=== PATIENT | male | born 1970 | race Caucasian/White ===

== ENCOUNTER → 2019-07-14 07:09 | Outpatient (CLI) | payer OTHER, SELFPAY ==
[2019-07-14 07:55] LABS: Hemoglobin A1C% w Est Avg Glu 5.4 % (4.0-6.0)
[2019-07-14 07:59] LABS: Alanine Aminotransferase 79 IU/L (<50); Albumin 4.7 g/dL (3.5-5.0); Albumin Globulin Ratio 1.6 (1.0-2.8); Alkaline Phosphatase 67 U/L (38-126); Aspartate Aminotransferase 39 IU/L (17-59); Bilirubin Total 0.6 mg/dL (0.2-1.3); Blood Urea Nitrogen 12 mg/dL (9-20); Calcium 9.6 mg/dL (8.4-10.2); Carbon Dioxide 23 mmol/L (22-32); Chloride 102 mmol/L (98-107); Cholesterol 224 mg/dL (140-199); Estimated Glomerular Filt Rate > 60.0 mL/min (>60); Globulin 2.9 g/dL (1.7-4.1); Glucose 95 mg/dL (70-100); HDL Cholesterol 31 mg/dL (40-60); HEMOLYSIS < 15 (0-50); LDL Cholesterol Calculated 163 mg/dL (<100); Potassium 4.2 mmol/L (3.4-5.1); Sodium 137 mmol/L (137-145); Total Protein 7.6 g/dL (6.3-8.2); Triglycerides 152 mg/dL (35-150)
[2019-07-14 09:09] LABS: HIV 1 & 2 Ab/Ag 4th Gen Combo NEGATIVE (NEGATIVE)
[2019-07-14 11:03] LABS: Urine N gonorrhoeae NOT DETECTED
[2019-07-14 11:14] LABS: Urine Chlamydia NOT DETECTED
[2019-07-17 08:34] LABS: Hepatitis A Antibody IgM NONREACTIVE; Hepatitis Acute Panel Interp 0.19; Hepatitis B Core Antibody IgM NONREACTIVE; Hepatitis B Surface Antigen NONREACTIVE; Hepatitis C Antibody NONREACTIVE
[2019-07-18 08:41] LABS: Syphilis AB Cascading Reflex NEGATIVE (Negative)
[2019-07-18 13:11] LABS: HSV 1 IgM Screen Negative (Negative); HSV 2 IgM Screen Negative (Negative)
== END ==
PROVIDERS: PCP Family Medicine; Visit Provider Family Medicine
DX: Z76.89 Persons encountering health services in other specified circumstances (principal); Z20.2 Contact with and (suspected) exposure to infections with a predominantly sexual mode of transmission
CPT/HCPCS: 36415; 80053; 80061; 80074; 83036; 86695; 86696; 86780; 87389; 87491; 87591

== ENCOUNTER → 2019-11-17 14:24 | Outpatient (CLI) | payer OTHER, SELFPAY ==
--- NOTE | 2019-11-17 14:26 | DI.RAD.S_ITS ---
PROCEDURE: XR FOOT RT MIN 3V INDICATIONS: swelling x2 weeks right foot and ankle TECHNIQUE: 3 views of the foot were acquired. COMPARISON: None. FINDINGS: Bones: No fractures or dislocations. No suspicious bony lesions. Soft tissues: No tibiotalar joint effusion. Achilles tendon appears normal. IMPRESSION: No trauma found, source of swelling is not seen. Dictated by: Arthur Summers M.D. on 11/17/2019 at 14:59 Approved by: Arthur Summers M.D. on 11/17/2019 at 15:00
--- NOTE | 2019-11-17 14:26 | DI.RAD.S_ITS ---
PROCEDURE: XR ANKLE RT MIN 3V INDICATIONS: swelling x2 weeks right foot and ankle TECHNIQUE: 3 views of the ankle were acquired. COMPARISON: None. FINDINGS: Bones: No fractures or dislocations. Ankle mortise is normally aligned. No suspicious bony lesions. Soft tissues: No tibiotalar joint effusion. Achilles tendon appears normal. IMPRESSION: No source of the reported swelling for 2 weeks, no trauma found. Mild swelling does appear localized over the lateral malleolus, which is normally aligned at the ankle mortise joint. This might represent a manifestation of ligament injury. Dictated by: Arthur Summers M.D. on 11/17/2019 at 14:58 Approved by: Arthur Summers M.D. on 11/17/2019 at 14:59
== END ==
PROVIDERS: PCP Family Medicine; Referring Provider Nurse Practitioner; Visit Provider Nurse Practitioner
DX: M25.471 Effusion, right ankle (principal)
CPT/HCPCS: 73610; 73630

== ENCOUNTER → 2020-01-03 17:42 | Outpatient (CLI) | payer OTHER, SELFPAY ==
--- NOTE | 2020-01-03 17:44 | DI.MRI.S_ITS ---
PROCEDURE: MR ANKLE RT WO CON INDICATIONS: Persistent right lateral ankle pain TECHNIQUE: Noncontrast sagittal T1 spin echo and T2 fast spin echo with fat saturation, axial proton density fast spin echo and T2 fast spin echo with fat saturation, coronal T1 spin echo and T2 fast spin echo with fat saturation through the ankle/hindfoot. COMPARISON: [facility], CR, XR ANKLE RT MIN 3V, 11/17/2019, 14:17. FINDINGS: Image quality: Excellent. Bones and joints: No bone marrow contusions or fractures. No hindfoot coalitions. No osteochondral injuries of the talar dome. Tibiotalar joint effusion is noted. Mild subcutaneous edema overlying the lateral and medial malleoli Medial structures: Posterior tibialis intact. Mild posterior tibialis tenosynovitis. Flexor digitorum longus intact. Flexor hallucis longus tendon intact. The posterior tibial neurovascular bundle appears normal within the tarsal tunnel, without extrinsic mass effect. Deltoid ligament complex appears intact. The spring ligament appears intact. Lateral structures: Anterior talofibular ligament not well seen and likely ruptured although age indeterminate.. Calcaneofibular ligament not well seen and may be result of low-grade sprain. Minimal sprain of the posterior talofibular ligament. Anterior and posterior tibiofibular ligaments appear intact, as is the intermalleolar ligament. Tibiofibular syndesmosis is normal in width at 2 mm or less. Peroneus longus and brevis tendons demonstrate normal location and morphology. Bony peroneal tubercle and retrotrochlear prominence are normal in size. Sinus tarsi demonstrates normal fatty signal, without edema, fibrosis, or cyst formation. Anterior structures: Tibialis anterior intact. Extensor hallucis longus intact. Extensor digitorum longus tendon intact. Dorsal talonavicular ligament appears intact. Posterior and plantar structures: Achilles tendon is intact. Mild medial band plantar fasciitis. This finding technically age indeterminate and could be chronic. No abductor digiti quinti muscle atrophy to suggest Sparks neuropathy. IMPRESSION: Sprain of the anterior talofibular and calcaneofibular (and to a much lesser extent posterior talofibular) ligaments. These findings technically age indeterminate and recommend correlation to clinical exam findings and history. Mild subcutaneous edema overlying the lateral medial malleoli. Mild posterior tibialis tenosynovitis Age-indeterminate mild medial band plantar fasciitis Tibiotalar joint effusion Dictated by: Harshad Bernard M.D. on 01/04/2020 at 8:40 Approved by: Harshad Bernard M.D. on 01/04/2020 at 8:50
== END ==
PROVIDERS: PCP Family Medicine; Referring Provider Family Medicine; Visit Provider Family Medicine
DX: M25.571 Pain in right ankle and joints of right foot (principal); S93.491A Sprain of other ligament of right ankle, initial encounter; S93.411A Sprain of calcaneofibular ligament of right ankle, initial encounter; R60.0 Localized edema; M65.871 Other synovitis and tenosynovitis, right ankle and foot; M72.2 Plantar fascial fibromatosis; M25.471 Effusion, right ankle
CPT/HCPCS: 73721

== ENCOUNTER → 2020-06-28 13:42 | Outpatient (CLI) | payer BC, SELFPAY ==
[2020-06-28 16:24] LABS: Add Manual Diff / Slide Review NO; Basophils Absolute Auto 100 /uL (0-100); Eosinophils Absolute Auto 400 /uL (0-450); Eosinophils Percent Auto 6.6 % (2-4); Hematocrit 45.7 % (41-53); Hemoglobin 15.2 g/dL (13.5-17.5); Lymphocytes Absolute Auto 1800 /uL (1100-4500); Lymphocytes Percent Auto 29.1 % (25-40); Mean Corpuscular HGB Conc 33.1 % (30-36); Mean Corpuscular Hemoglobin 26.9 PG (26-34); Mean Corpuscular Volume 81.2 fL (80-100); Monocytes Absolute Auto 500 /uL (0-900); Monocytes Percent Auto 7.7 % (3-14); Neutrophils Absolute Auto 3500 /uL (1500-7000); Neutrophils Percent Auto 55.6 % (50-75); Platelet Count 351 X10^3/uL (150-400); Red Blood Cell Count 5.63 X10^6/uL (4.5-5.9); White Blood Cell Count 6.3 X10^3/uL (4.5-11.0)
[2020-06-28 16:38] LABS: Alanine Aminotransferase 50 IU/L (<50); Albumin 4.5 g/dL (3.5-5.0); Albumin Globulin Ratio 1.7 (1.0-2.8); Alkaline Phosphatase 68 U/L (38-126); Aspartate Aminotransferase 29 IU/L (17-59); BUN Creatinine Ratio 11.4 (6-22); Bilirubin Total 0.3 mg/dL (0.2-1.3); Blood Urea Nitrogen 8 mg/dL (9-20); Calcium 9.2 mg/dL (8.4-10.2); Carbon Dioxide 26 mmol/L (22-32); Chloride 105 mmol/L (98-107); Cholesterol 202 mg/dL (140-199); Estimated Glomerular Filt Rate > 60.0 mL/min (>60); Globulin 2.6 g/dL (1.7-4.1); Glucose 83 mg/dL (70-100); HDL Cholesterol 39 mg/dL (40-60); HEMOLYSIS 17 (0-50); LDL Cholesterol Calculated 130 mg/dL (<100); Potassium 3.8 mmol/L (3.4-5.1); Sodium 137 mmol/L (137-145); Total Protein 7.1 g/dL (6.3-8.2); Triglycerides 165 mg/dL (35-150)
== END ==
PROVIDERS: PCP Family Medicine; Referring Provider Family Medicine; Visit Provider Family Medicine
DX: E78.00 Pure hypercholesterolemia, unspecified (principal); I10 Essential (primary) hypertension
CPT/HCPCS: 36415; 80053; 80061; 85025

== ENCOUNTER → 2020-07-05 14:42 | Outpatient (CLI) | payer BC, SELFPAY ==
--- NOTE | 2020-07-05 14:44 | DI.CT.S_ITS ---
PROCEDURE: CT HEAD/BRAIN WO/W CON INDICATIONS: Progressive atypical headache TECHNIQUE: 4.5 mm thick angled axial sections acquired from the foramen magnum to the vertex before and after the administration of intravenous contrast, with coronal and sagittal reformats. For radiation dose reduction, the following was used: automated exposure control, adjustment of mA and/or kV according to patient size. COMPARISON: None. FINDINGS: Image quality: Excellent. CSF Spaces: Basal cisterns are patent. No extra-axial fluid collections. Ventricles are normal in size and shape. Brain: No midline shift. No intracranial bleeds or masses. No abnormal intracranial enhancement. Best-white interface appears normal. Skull and face: Calvarium and visualized facial bones appear intact, without suspicious lesions. Sinuses: Visualized sinuses and mastoids are clear. IMPRESSION: Normal for age, source of current symptoms is not seen. No mass or aneurysm, or vascular malformation is found. Dictated by: Arthur Summers M.D. on 07/05/2020 at 16:03 Approved by: Arthur Summers M.D. on 07/05/2020 at 16:04
== END ==
PROVIDERS: PCP Family Medicine; Referring Provider Family Medicine; Visit Provider Family Medicine
DX: G43.109 Migraine with aura, not intractable, without status migrainosus (principal)
CPT/HCPCS: 70470

== ENCOUNTER → 2020-09-13 09:05 | Outpatient (CLI) | payer BC, SELFPAY ==
[2020-09-13 10:03] LABS: COVID19 -Nasal RAPID Negative (Negative)
== END ==
PROVIDERS: PCP Family Medicine; Visit Provider Surgery
DX: Z20.822 Contact with and (suspected) exposure to COVID-19 (principal)
CPT/HCPCS: 87635; C9803

== ENCOUNTER 2020-09-16 07:18 | Day surgery (SDC) | payer BC, SELFPAY ==
[2020-09-16 07:44] VITALS: BP 128/94; PULSE 103; RESP 14; TEMP 36.7; O2SAT 90; BMI 44.3
[2020-09-16] MEDS: SODIUM CHLORIDE 0.9% 1,000 ML 200 ML IV (08:00)
--- NOTE | 2020-09-16 08:21 | P.HP_ITS ---
History of Present Illness History of Present Illness Date Patient Seen: 09/16/20 Time Patient Seen: 08:21 Chief complaint: SDC Narrative: This is a 50-year-old man with morbid obesity, BMI 44, who had a prior colonoscopy 9 years ago for abdominal pain, with no particular findings. He is here for a screening colonoscopy since he has just turned 50. He denies any symptoms of melena, hematochezia, unexplained abdominal pain, unexplained weight loss. He denies any family history of colon polyps or colon cancers. ROS Thirteen system review is otherwise negative other than as mentioned below and in HPI. PE: GENERAL: Well groomed and cooperative. Morbidly obese. Appears stated age. Answers questions promptly and appropriately. Vital signs noted. HENT: Normocephalic, atraumatic. Hearing intact. EYES: Conjunctiva pink, sclera white, no periorbital swelling. CARDIOVASCULAR: Regular rate. No pedal edema. RESPIRATORY: Non-tachypneic, breathing comfortably on room air. GASTROINTESTINAL: Abdomen soft and non-distended GENITALURINARY: No flank tenderness. MUSCULOSKELETAL: Equal tone and mass bilaterally. SKIN: Warm, dry, soft, appropriate color for ethnicity. No other lesions, rashes, or wounds. NEURO: Alert and Oriented X 3. No gross sensory deficits, or cognitive issues. PSYCH: Appropriate affect and mood. Patient History Medical History Ankle pain (~2013) Asthma Chicken pox (~1976) Chronic back pain (~2007) Depression (~1981) Diverticular disease (~2011) Foot pain (~2013) GERD (gastroesophageal reflux disease) Headache (~2015) Hearing loss Hypertension Migraines (~2014) Skin tag (~2015) Substance abuse (~2006) Thoracic myofascial strain Wears glasses Well adult exam Surgical History Anesthesia History of oral surgery (~2003) Family & Social History Family History Father Hypertension Social History: household members other Tobacco & Substance use: Smoking Status Former smoker alcohol intake former Substance Use Type does not use Meds Home Medications and Allergies Home Medications Medication Instructions Recorded Confirmed Type ibuprofen 800 mg tablet 800 mg PO Q8H #90 tab 01/24/20 09/16/20 Rx albuterol sulfate 90 mcg/actuation 2 puff INHALATION QID PRN #6.7 gram 02/12/20 09/16/20 Rx aerosol inhaler docusate sodium 1 each PO .QD 02/12/20 09/16/20 History psyllium 1 each PO .HS 02/12/20 09/16/20 History amlodipine 5 mg tablet 5 mg PO DAILY #90 tab 06/28/20 09/16/20 Rx buzznvdkvk-foibgsmprqkif-wwndzvtl 1 cap PO Q4-6H PRN #10 cap 06/28/20 09/16/20 Rx 50 mg-300 mg-40 mg capsule trazodone 50 mg tablet 50 mg PO BEDTIME #90 tab 06/28/20 09/16/20 Rx diclofenac sodium 75 mg 75 mg PO BID PRN #180 tab 07/10/20 09/16/20 Rx tablet,delayed release sumatriptan succinate 100 mg tablet See Rx Instructions PO .COMPLEX 07/10/20 0 09/16/20 Rx #10 tab topiramate 50 mg tablet 50 mg PO BID #60 tab 07/10/20 09/16/20 Rx Allergies Allergy/AdvReac Type Severity Reaction Status Date / Time Sulfa (Sulfonamide Allergy Severe Rash Verified 09/16/20 07:40 Antibiotics) lisinopril AdvReac Mild Cough Verified 09/16/20 07:40 Exam Vital Signs (past 8 hours): - 09/16/20 07:44 Temperature 98.1 F Pulse Rate 103 H Respiratory Rate 14 Blood Pressure 128/94 H Pulse Oximetry 90 L Oxygen Delivery Method Room Air Assessment & Plan Assessment and plan (1) Morbid obesity with BMI of 40.0-44.9, adult: Status: Acute (2) At average risk for colon cancer: Status: Acute Assessment & Plan narrative: Risks and benefits of screening colonoscopy and possible polypectomy were discussed with the patient including risk of bleeding, perforation, need for additional procedures, risks of anesthesia. The patient desires to proceed with the colonoscopy procedure. COVID-19 COVID-19 status: Negative Result date/Date tested (Pos, Neg/Pending): 09/13/20 Time Spent With Patient Time with patient: 15-24 minutes Quality VTE Deep Vein Thrombosis/Pulmonary Embolism Present on Admission: No
--- NOTE | 2020-09-16 08:24 | P.OP.ENDO_ITS ---
Operative Date/Time/Diagnoses Date of procedure: 09/16/20 Time of procedure: 08:24 Pre-op diagnosis: Average risk for colon cancer, due for screening colonoscopy Post-op diagnosis: other (Diverticulosis throughout the colon, otherwise normal) Procedure & Clinicians Study performed: Colonoscopy Procedural sedation performed by the endoscopist Same procedure as scheduled: Yes Indications: Average risk for colon cancer, due for screening colonoscopy Surgeon: Pamella Gary Procedure Notes SCOAP/Timeout: Performed Procedure in detail: The patient was brought to the room and placed in left lateral decubitus position with all bony prominences padded. A time-out was performed and then the patient was given procedural sedation starting with 4 mg of Versed and 100 mcg of fentanyl. Vitals were monitored throughout the pro cedure and remained stable. Once adequately sedated, the procedure was begun. A rectal exam was performed revealing no abnormalities. The colonoscope was then introduced to the rectum and advanced to the cecum in the usual fashion. The cecum was identified by the appendiceal orifice, the mucosal tri-fold, and the ileocecal valve. The scope was then retracted while rotating side to side and examining each mucosal fold. Diverticula were found throughout the colon, but no sign of active diverticulitis, polyps, or other abnormalities were seen. At the conclusion of the procedure retroflexion was performed and small grade 1- 2 internal hemorrhoids without stigmata of bleeding were seen. The scope was then withdrawn from the rectum the procedure was concluded. The patient tolerated the procedure well and was transferred to the PACU in stable condition. Scope withdrawal time: 8 Sedation minutes: 13 Findings: diverticulosis Specimen(s): none sent Complications: none Impression: Diverticulosis throughout the colon, otherwise normal Post-procedure Recommendations: Colonscopy in 10 years and Other recommendation (High-fiber diet, fiber supplement such as Metamucil) Follow up: as needed Disposition: PACU
[2020-09-16] MEDS: fentaNYL 250 MCG/5 ML INJ IV (08:30)
[2020-09-16] MEDS: MIDAZOLAM 5 MG/5 ML VIAL IV (08:30)
[2020-09-16 08:52] VITALS: BP 142/98; PULSE 93; RESP 13; TEMP 36.4; O2SAT 92
[2020-09-16 08:58] VITALS: BP 139/93; PULSE 102; RESP 12; O2SAT 94
[2020-09-16 09:02] VITALS: BP 130/89; PULSE 93; RESP 13; TEMP 36.2; O2SAT 94
== END 2020-09-16 09:17 | disposition home or self-care (01) ==
PROVIDERS: PCP Family Medicine; Referring Provider Surgery; Visit Provider Surgery
PROC: 0DJD8ZZ Inspection of Lower Intestinal Tract, Via Natural or Artificial Opening Endoscopic (ICD-10-PCS; CPT 45378; principal; 2020-09-16 08:30)
DX: Z12.11 Encounter for screening for malignant neoplasm of colon (principal); E66.01 Morbid (severe) obesity due to excess calories; Z68.41 Body mass index [BMI] 40.0-44.9, adult; K64.0 First degree hemorrhoids; K57.30 Diverticulosis of large intestine without perforation or abscess without bleeding
CPT/HCPCS: 45378; 99152; J2250; J3010

== ENCOUNTER → 2021-04-01 09:29 | Outpatient (CLI) | payer BC, SELFPAY ==
[2021-04-01 10:19] LABS: Add Manual Diff / Slide Review NO; Basophils Absolute Auto 0 /uL (0-100); Basophils Percent Auto 0.2 % (0-2); Eosinophils Absolute Auto 400 /uL (0-450); Eosinophils Percent Auto 6.7 % (2-4); Hematocrit 44.6 % (41-53); Lymphocytes Absolute Auto 1600 /uL (1100-4500); Lymphocytes Percent Auto 29.2 % (25-40); Mean Corpuscular HGB Conc 33.6 % (30-36); Mean Corpuscular Hemoglobin 27.6 PG (26-34); Mean Corpuscular Volume 82.1 fL (80-100); Monocytes Absolute Auto 400 /uL (0-900); Monocytes Percent Auto 7.9 % (3-14); Neutrophils Absolute Auto 3100 /uL (1500-7000); Platelet Count 328 X10^3/uL (150-400); Red Blood Cell Count 5.43 X10^6/uL (4.5-5.9); Red Cell Distribution Width 13.4 % (11.6-14.8); White Blood Cell Count 5.5 X10^3/uL (4.5-11.0)
[2021-04-01 10:39] LABS: Alanine Aminotransferase 67 IU/L (<50); Albumin 4.4 g/dL (3.5-5.0); Albumin Globulin Ratio 1.8 (1.0-2.8); Alkaline Phosphatase 61 U/L (38-126); Aspartate Aminotransferase 33 IU/L (17-59); Bilirubin Total 0.4 mg/dL (0.2-1.3); Blood Urea Nitrogen 12 mg/dL (9-20); Calcium 9.5 mg/dL (8.4-10.2); Carbon Dioxide 23 mmol/L (22-32); Chloride 108 mmol/L (98-107); Cholesterol 223 mg/dL (140-199); Estimated Glomerular Filt Rate > 60.0 mL/min (>60); Globulin 2.5 g/dL (1.7-4.1); Glucose 109 mg/dL (70-100); HDL Cholesterol 42 mg/dL (40-60); HEMOLYSIS < 15 (0-50); LDL Cholesterol Calculated 147 mg/dL (<100); Potassium 4.4 mmol/L (3.4-5.1); Sodium 140 mmol/L (137-145); Total Protein 6.9 g/dL (6.3-8.2); Triglycerides 172 mg/dL (35-150)
[2021-04-01 11:09] LABS: TSH w/ Reflex to FT4 1.17 uIU/mL (0.47-4.68)
== END ==
PROVIDERS: PCP Family Medicine; Referring Provider Family Medicine; Visit Provider Family Medicine
DX: I10 Essential (primary) hypertension (principal); G43.909 Migraine, unspecified, not intractable, without status migrainosus; E66.01 Morbid (severe) obesity due to excess calories; K21.9 Gastro-esophageal reflux disease without esophagitis; Z68.41 Body mass index [BMI] 40.0-44.9, adult
CPT/HCPCS: 36415; 80053; 80061; 84443; 85025

== ENCOUNTER → 2021-08-11 17:12 | Outpatient (CLI) | payer BC, SELFPAY ==
--- NOTE | 2021-08-11 17:14 | DI.RAD.S_ITS ---
PROCEDURE: XR CHEST 2V INDICATIONS: cough in an ex smoker TECHNIQUE: 2 views of the chest were acquired. COMPARISON: None. FINDINGS: Surgical changes and devices: None. Lungs and pleura: Lungs are clear. No pleural effusions or pneumothorax. Mediastinum: Mediastinal contours are normal. Heart size is normal. Bones and chest wall: No suspicious bony abnormalities. Soft tissues appear unremarkable. IMPRESSION: No acute cardiopulmonary pathology. Dictated by: Flavio Leon M.D. on 08/12/2021 at 10:33 Approved by: Flavio Leon M.D. on 08/12/2021 at 10:33
[2021-08-11 18:23] LABS: Alanine Aminotransferase 71 IU/L (<50); Albumin Globulin Ratio 1.7 (1.0-2.8); Alkaline Phosphatase 68 U/L (38-126); Aspartate Aminotransferase 45 IU/L (17-59); BUN Creatinine Ratio 7.3 (6-22); Bilirubin Total 0.4 mg/dL (0.2-1.3); Blood Urea Nitrogen 7 mg/dL (9-20); Calcium 9.5 mg/dL (8.4-10.2); Carbon Dioxide 22 mmol/L (22-32); Chloride 109 mmol/L (98-107); Cholesterol 183 mg/dL (140-199); Estimated Glomerular Filt Rate > 60.0 mL/min (>60); Glucose 88 mg/dL (70-100); HDL Cholesterol 44 mg/dL (40-60); HEMOLYSIS < 15 (0-50); LDL Cholesterol Calculated 102 mg/dL (<100); Potassium 3.7 mmol/L (3.4-5.1); Sodium 142 mmol/L (137-145); Triglycerides 186 mg/dL (35-150)
[2021-08-11 18:55] LABS: Prostate Specific Antigen 2.23 ng/mL (0.10-4.00)
[2021-08-11 19:09] LABS: Hemoglobin A1C% w Est Avg Glu 5.9 % (4.0-6.0)
== END ==
PROVIDERS: PCP Family Medicine; Referring Provider Family Medicine; Visit Provider Family Medicine
DX: R05.9 Cough, unspecified (principal); R73.9 Hyperglycemia, unspecified; Z00.00 Encounter for general adult medical examination without abnormal findings; E78.5 Hyperlipidemia, unspecified
CPT/HCPCS: 36415; 71046; 80053; 80061; 83036; 84153

== ENCOUNTER → 2022-02-13 07:15 | Outpatient (CLI) | payer BC, SELFPAY ==
[2022-02-13 09:45] LABS: Alanine Aminotransferase 52 IU/L (<50); Albumin 4.1 g/dL (3.5-5.0); Albumin Globulin Ratio 1.6 (1.0-2.8); Alkaline Phosphatase 69 U/L (38-126); Aspartate Aminotransferase 33 IU/L (17-59); BUN Creatinine Ratio 11.9 (6-22); Bilirubin Total 0.6 mg/dL (0.2-1.3); Blood Urea Nitrogen 10 mg/dL (9-20); Calcium 9.2 mg/dL (8.4-10.2); Carbon Dioxide 26 mmol/L (22-32); Chloride 107 mmol/L (98-107); Estimated Glomerular Filt Rate > 60 mL/min (>60); Globulin 2.5 g/dL (1.7-4.1); Glucose 103 mg/dL (70-100); HEMOLYSIS < 15 (0-50); Sodium 139 mmol/L (137-145); Total Protein 6.6 g/dL (6.3-8.2)
[2022-02-13 10:26] LABS: Urine N gonorrhoeae NOT DETECTED
[2022-02-13 10:27] LABS: Urine Chlamydia NOT DETECTED
[2022-02-13 16:21] LABS: HIV 1 & 2 Ab/Ag 4th Gen Combo NEGATIVE (NEGATIVE); Hep C Virus Ab w/Reflex Quant NEGATIVE s/c (NEGATIVE)
[2022-02-14 02:52] LABS: HSV 2 IGG AB < 0.91 index (0.00-0.90); HSV1IGG 6.36 index (0.00-0.90)
== END ==
PROVIDERS: PCP Family Medicine; Referring Provider Family Medicine; Visit Provider Family Medicine
DX: Z00.00 Encounter for general adult medical examination without abnormal findings (principal)
CPT/HCPCS: 36415; 80053; 86695; 86696; 86803; 87389; 87491; 87591

== ENCOUNTER → 2022-03-07 07:59 | Outpatient (CLI) | payer BC, SELFPAY ==
[2022-03-07 09:36] LABS: Add Manual Diff / Slide Review NO; Basophils Absolute Auto 0 /uL (0-100); Basophils Percent Auto 0.9 % (0-2); Eosinophils Absolute Auto 300 /uL (0-450); Eosinophils Percent Auto 5.1 % (2-4); Hematocrit 43.9 % (41-53); Hemoglobin 15.1 g/dL (13.5-17.5); Lymphocytes Absolute Auto 1600 /uL (1100-4500); Lymphocytes Percent Auto 30.3 % (25-40); Mean Corpuscular HGB Conc 34.4 % (30-36); Mean Corpuscular Hemoglobin 27.6 PG (26-34); Mean Corpuscular Volume 80.2 fL (80-100); Monocytes Absolute Auto 400 /uL (0-900); Monocytes Percent Auto 7.4 % (3-14); Neutrophils Absolute Auto 3000 /uL (1500-7000); Neutrophils Percent Auto 56.3 % (50-75); Platelet Count 310 X10^3/uL (150-400); Red Blood Cell Count 5.47 X10^6/uL (4.5-5.9); Red Cell Distribution Width 13.6 % (11.6-14.8); White Blood Cell Count 5.4 X10^3/uL (4.5-11.0)
[2022-03-07 09:43] LABS: Hemoglobin A1C% w Est Avg Glu 5.6 % (4.0-6.0)
[2022-03-07 09:55] LABS: Cholesterol 123 mg/dL (140-199); HDL Cholesterol 35 mg/dL (40-60); LDL Cholesterol Calculated 69 mg/dL (<100); Triglycerides 96 mg/dL (35-150)
== END ==
PROVIDERS: PCP Family Medicine; Referring Provider Family Medicine; Visit Provider Family Medicine
DX: E78.2 Mixed hyperlipidemia (principal); R73.9 Hyperglycemia, unspecified
CPT/HCPCS: 36415; 80061; 83036; 85025

== ENCOUNTER → 2022-08-26 11:02 | Outpatient (CLI) | payer OTHER, SELFPAY ==
[2022-08-26 11:35] LABS: Alanine Aminotransferase 38 IU/L (<50); Albumin 4.4 g/dL (3.5-5.0); Albumin Globulin Ratio 1.6 (1.0-2.8); Alkaline Phosphatase 78 U/L (38-126); Aspartate Aminotransferase 26 IU/L (17-59); BUN Creatinine Ratio 9.8 (6-22); Bilirubin Total 0.4 mg/dL (0.2-1.3); Blood Urea Nitrogen 8 mg/dL (9-20); Calcium 9.1 mg/dL (8.4-10.2); Carbon Dioxide 24 mmol/L (22-32); Chloride 107 mmol/L (98-107); Estimated Glomerular Filt Rate > 60 mL/min (>60); Globulin 2.8 g/dL (1.7-4.1); Glucose 109 mg/dL (70-100); Hemoglobin A1C% w Est Avg Glu 5.8 % (4.0-6.0); Potassium 3.8 mmol/L (3.4-5.1); Sodium 139 mmol/L (137-145); Total Protein 7.2 g/dL (6.3-8.2)
[2022-08-28 09:52] LABS: HEMOLYSIS 18 (0-50); Prostate Specific Antigen 1.45 ng/mL (0.10-4.00)
== END ==
PROVIDERS: PCP Family Medicine; Referring Provider Family Medicine; Visit Provider Family Medicine
DX: E78.5 Hyperlipidemia, unspecified (principal); I10 Essential (primary) hypertension; R73.9 Hyperglycemia, unspecified
CPT/HCPCS: 36415; 80053; 83036; 84153

== ENCOUNTER → 2023-03-05 13:49 | Outpatient (CLI) | payer OTHER, SELFPAY ==
[2023-03-05 15:29] LABS: Alanine Aminotransferase 31 IU/L (<50); Albumin 4.3 g/dL (3.5-5.0); Albumin Globulin Ratio 1.6 (1.0-2.8); Alkaline Phosphatase 65 U/L (38-126); Aspartate Aminotransferase 24 IU/L (17-59); BUN Creatinine Ratio 13.3 (6-22); Bilirubin Total 0.3 mg/dL (0.2-1.3); Blood Urea Nitrogen 11 mg/dL (9-20); Calcium 9.4 mg/dL (8.4-10.2); Carbon Dioxide 26 mmol/L (22-32); Chloride 106 mmol/L (98-107); Estimated Glomerular Filt Rate > 60 mL/min (>60); Globulin 2.7 g/dL (1.7-4.1); Glucose 101 mg/dL (70-100); HEMOLYSIS < 15 (0-50); Potassium 4.2 mmol/L (3.4-5.1); Sodium 138 mmol/L (137-145)
[2023-03-06 09:09] LABS: HIV 1 & 2 Ab/Ag 4th Gen Combo NEGATIVE (NEGATIVE); Hep C Virus Ab w/Reflex Quant NEGATIVE s/c (NEGATIVE)
== END ==
PROVIDERS: PCP Family Medicine; Referring Provider Family Medicine; Visit Provider Family Medicine
DX: I10 Essential (primary) hypertension (principal); Z11.3 Encounter for screening for infections with a predominantly sexual mode of transmission
CPT/HCPCS: 36415; 80053; 86803; 87389

== ENCOUNTER 2023-06-03 06:10 | Emergency (ER) | payer OTHER, SELFPAY ==
[2023-06-03 06:14] VITALS: PULSE 75; O2SAT 98
[2023-06-03 06:16] VITALS: BP 150/93; PULSE 58; RESP 18; TEMP 36.4; O2SAT 97; BMI 39.9
--- NOTE | 2023-06-03 06:21 | DI.CT.S_ITS ---
PROCEDURE: CT ABDOMEN PELVIS W CON INDICATIONS: RLQ ABDOMINAL PAIN TECHNIQUE: After the administration of IV contrast, axial sections were acquired from the lung bases to the pubic symphysis. Coronal and sagittal reformats were performed. For radiation dose reduction, the following was used: automated exposure control, adjustment of mA and/or kV according to patient size. COMPARISON: None. FINDINGS: Image quality: Excellent. Lung bases: Unremarkable. Heart: No significant findings. ABDOMEN: Liver: Hepatic steatosis. Probable tiny cyst in the right lobe of the liver. Gallbladder: Not distended. No stones. Biliary ducts: No biliary dilation. Pancreas: No ductal dilation. Spleen: Size is within normal limits. Adrenal Glands: No adrenal nodules. Kidneys and Ureters: Obstructing calculus in the proximal right ureter measuring at 0.4 cm. There is moderate right hydronephrosis. Right perinephric stranding. Additional punctate nonobstructing right kidney stone. No solid renal mass. No left hydronephrosis. Stomach and Bowel: Normal colonic caliber, without significant wall thickening. Diverticulosis. Normal appendix. Peritoneum: No abnormal intraperitoneal fluid. No free air. Ventral Wall: No hernia. Abdominal Nodes: No retroperitoneal or mesenteric adenopathy by size criteria. Mesenteric lymph nodes are felt to be within normal limits. Vessels: Aorta and inferior vena cava are normal in size. PELVIS: Pelvic Organs: Unremarkable. Bladder: Unremarkable. Pelvic Nodes: No enlarged lymph nodes. Miscellaneous: No inguinal hernias are seen. Bones: No aggressive osseous abnormality. IMPRESSION: 1. Obstructing calculus in the proximal right ureter measuring 0.4 cm. Moderate hydronephrosis. 2. Additional small nonobstructing right kidney stone. 3. Diverticulosis. Normal appendix. Hepatic steatosis. No significant discrepancy with the overnight preliminary interpretation. Dictated by: Kaveh Bird M.D. on 06/03/2023 at 8:48 Approved by: Kaveh Bird M.D. on 06/03/2023 at 8:54
--- NOTE | 2023-06-03 06:22 | ED_ITS ---
HPI - Abdominal Pain General Chief Complaint: Abdominal Pain Stated Complaint: rt abd pain, n/v Time Seen by Provider: 06/03/23 06:11 Source: patient Mode of arrival: Ambulatory History of Present Illness HPI narrative: 52yoM with PMH HTN, HLD present by private vehicle from home for RLQ abdominal pain with nausea and vomiting that woke him up from sleep approximately 1 hour prior to arrival. Pain is constant, does not radiate, nothing seems to make it better or worse. No medications taken prior to arrival. Reports previous history of diverticulitis, but this feels different and on is on a different side of his abdomen. Related Data Home Medications Medication Instructions Recorded Confirmed docusate sodium 1 each PO .QD 02/12/20 12/31/22 psyllium [Metamucil (sugar)] 1 each PO .HS 02/12/20 12/31/22 cpap 08/11/21 12/31/22 Previous Rx's Medication Instructions Recorded sumatriptan succinate 100 mg tablet See Rx Instructions PO .COMPLEX 03/31/22 #10 tabs ibuprofen 800 mg tablet 800 mg PO Q8H #90 tabs 07/17/22 albuterol sulfate 90 mcg/actuation 1 - 2 puff inhalation QID PRN 09/29/22 aerosol inhaler (Ventolin HFA) shortness of breath or wheezing, or cough #6.7 grams amlodipine 5 mg tablet 5 mg PO DAILY #90 tabs 09/29/22 atorvastatin 20 mg tablet 20 mg PO BEDTIME #90 tabs 09/29/22 azelastine 0.05 % eye drops 1 drp EYE-BOTH BID viral 09/29/22 conjunctivitis #6 mL calcipotriene 0.005 % scalp 1 ml topical .BIW PRN atopic 09/29/22 solution dermatitis #60 mL clobetasol 0.05 % scalp solution 1 ml topical .BIW PRN atopic 09/29/22 dermatitis #50 mL fluticasone 250 mcg-salmeterol 50 1 inh inhalation BID #60 ea 09/29/22 mcg/dose blistr powdr for inhalation (Advair Diskus) metoprolol succinate 25 mg See Rx Instructions .Route 09/29/22 tablet,extended release 24 hr .COMPLEX #90 tabs mupirocin 2 % topical ointment 1 applic topical TID #15 grams 09/29/22 emtricitabine 200 mg-tenofovir 1 tab PO DAILY #90 tabs 03/01/23 disoproxil fumarate 300 mg tablet (Truvada) trazodone 50 mg tablet 50 mg PO BEDTIME #90 tabs 04/07/23 ubeobpnkxt-mnuoypwqwvgwj-qzvlcsps 1 cap PO Q4-6H PRN pain #10 caps 06/03/23 50 mg-300 mg-40 mg capsule (Fioricet) terbinafine HCl 250 mg tablet 250 mg PO DAILY #90 tabs 06/03/23 Allergies Allergy/AdvReac Type Severity Reaction Status Date / Time Sulfa (Sulfonamide Allergy Severe Rash Verified 12/31/22 15:34 Antibiotics) lisinopril AdvReac Mild Cough Verified 12/31/22 15:34 Review of Systems Review of Systems Narrative: Negative except as noted above Patient History Medical History Concern about STD in male without diagnosis Onychomycosis Cough Well adult exam Hyperglycemia Hyperlipidemia Sleep apnea Fatigue Insomnia GERD (gastroesophageal reflux disease) Thoracic myofascial strain Asthma GERD (gastroesophageal reflux disease) Well adult exam Wears glasses Hearing loss Skin tag (~2015) Substance abuse (~2006) Depression (~1981) Migraines (~2014) Headache (~2015) Foot pain (~2013) Chronic back pain (~2007) Ankle pain (~2013) Chicken pox (~1976) Diverticular disease (~2011) Hypertension Surgical History Anesthesia History of oral surgery (~2003) Family History Father Hypertension Hyperlipidemia Mother Hypertension Active asthma Social History household members: other Smoking Status: Current some day smoker Tobacco: How many years used: 28 quit status: has quit before second hand exposure: Yes alcohol intake: former substance use type: former substance user, marijuana, crack/cocaine and methamphetamine Smoking Status: Current some day smoker tobacco type: cigars Substance Use Type: does not use Exam Initial Vital Signs Initial Vital Signs: Vital Signs Pulse Rate 75 06/03/23 06:14 Pulse Oximetry 98 06/03/23 06:14 Oxygen Delivery Method Room Air 06/03/23 06:14 Const: Awake, alert, uncomfortable, in pain Cardiac: regular rate, regular rhythm RESP: unlabored, clear bilaterally, no wheezing GI: Soft, right lower quadrant tenderness to deep palpation without rebound or guarding Skin: Warm, Dry, intact, no rashes Neuro: AO x3, CN II-XII grossly intact, moves all extremities Course Orders Ordered: ED Orders 06/03/23 06:21 CT abdomen pelvis w con Stat CBC Auto Diff [Complete Blood Count AUTO DIFF] Stat CMP [Comprehensive Metabolic Panel] Stat Lipase Stat 06/03/23 06:22 UA Complete [Urinalysis and Microscopic] Stat Sodium Chloride (Normal Saline 0.9%) 1,000 mls @ 1,000 mls/hr IV BOLUS ONE Stop: 06/03/23 07:20 Last Admin: 06/03/23 06:30 Dose: 1,000 mls/hr Ketorolac Tromethamine (Ketorolac 30 Mg/Ml Vial) 15 mg IV NOW ONE Stop: 06/03/23 07:02 Discontinued Medications Morphine Sulfate (Morphine 4 Mg/Ml Inj) 4 mg IV NOW ONE Stop: 06/03/23 06:22 Last Admin: 06/03/23 06:30 Dose: 4 mg Ondansetron HCl (Ondansetron 4 Mg/2 Ml Inj) 4 mg IV NOW ONE Stop: 06/03/23 06:22 Last Admin: 06/03/23 06:30 Dose: 4 mg Vital Signs Vital signs: Vital Signs - 8 hr 06/03/23 06:14 06/03/23 06:16 06/03/23 06:30 Temperature 97.6 F Pulse Rate 75 58 L Respiratory Rate 18 Blood Pressure 150/93 H 149/90 H Pulse Oximetry 98 97 Oxygen Delivery Method Room Air Room Air 06/03/23 06:30 Temperature Pulse Rate 64 Respiratory Rate Blood Pressure Pulse Oximetry 96 Oxygen Delivery Method Room Air MDM - Abdominal Pain Differential Diagnosis Differential diagnosis: Likely abdominal pain, acute appendicitis and calculus of kidney Lab Data 06/03/23 06:24 06/03/23 06:24 Labs: Lab Results 06/03/23 Range/Units 06:24 WBC 7.6 (4.5-11.0) X10^3/uL RBC 5.59 (4.5-5.9) X10^6/uL Hgb 16.3 (13.5-17.5) g/dL Hct 46.8 (41-53) % MCV 83.8 (80-100) fL MCH 29.1 (26-34) PG MCHC 34.7 (30-36) % RDW 13.5 (11.6-14.8) % Plt Count 309 (150-400) X10^3/uL Neut % (Auto) 67.4 (50-75) % Lymph % (Auto) 20.9 L (25-40) % Rosebud % (Auto) 6.9 (3-14) % Eos % (Auto) 3.7 (2-4) % Baso % (Auto) 1.1 (0-2) % Neut # (Auto) 5100 (3725-0588) /uL Lymph # (Auto) 1600 (3024-4355) /uL [place] # (Auto) 500 (0-900) /uL Eos # (Auto) 300 (0-450) /uL Baso # (Auto) 100 (0-100) /uL Sodium 138 (137-145) mmol/L Potassium 4.1 (3.4-5.1) mmol/L Chloride 109 H (98-107) mmol/L Carbon Dioxide 19 L (22-32) mmol/L BUN 12 (9-20) mg/dL Creatinine 0.90 (0.66-1.25) mg/dL Estimated GFR > 60 (>60) mL/min BUN/Creatinine Ratio 13.3 (6-22) Glucose 132 H (70-100) mg/dL Calcium 9.5 (8.4-10.2) mg/dL Total Bilirubin 0.6 (0.2-1.3) mg/dL AST 28 (17-59) IU/L ALT 33 (<50) IU/L Alkaline Phosphatase 63 (38-126) U/L Total Protein 7.2 (6.3-8.2) g/dL Albumin 4.4 (3.5-5.0) g/dL Globulin 2.8 (1.7-4.1) g/dL Albumin/Globulin Ratio 1.6 (1.0-2.8) Lipase 114 (23-300) U/L [facility] Narrative Medical decision making narrative: Nontoxic appearing patient with sudden onset right lower quadrant pain causing him to wake up from sleep. Abdomen is soft but he does have tenderness to deep palpation in the right lower quadrant. Vital signs reviewed. NS, morphine, zofran ordered for symptoms. Labs/CT scan pending. Laboratory work reviewed, no leukocytosis, kidney function normal. Pending urinalysis and CT imaging. Care of patient is signed out to Dr. Garcia at 0700 Discharge Plan Departure Prescriptions: No Action sumatriptan succinate 100 mg tablet See Rx Instructions PO .COMPLEX Qty: 10 2RF Rx Instructions: take 1 tab at onset of headache; if no relief, may repeat 1 tab after at least 2 hrs; max = 2 tabs/24 hrs PO albuterol sulfate [Ventolin HFA] 90 mcg/actuation HFA aerosol inhaler 1 - 2 puff INHALATION QID PRN (Reason: shortness of breath or wheezing, or cough) Qty: 6.7 2RF Rx Instructions: 1-2 puffs inh as needed shortness of breath,wheezing,cough amlodipine 5 mg tablet 5 mg PO DAILY Qty: 90 1RF atorvastatin 20 mg tablet 20 mg PO BEDTIME Qty: 90 3RF azelastine 0.05 % drops 1 drp EYE-BOTH BID Qty: 6 0RF calcipotriene 0.005 % solution 1 ml topical .BIW PRN (Reason: atopic dermatitis) Qty: 60 0RF Rx Instructions: rub in gently and completely. apply sparingly to affected area at bedtime. shower the next morning. use with clobetasol 0.05% topical solution. clobetasol 0.05 % solution 1 ml topical .BIW PRN (Reason: atopic dermatitis) Qty: 50 0RF Rx Instructions: apply sparingly to affected area at bedtime. shower the next morning. use with calcipotriene 0.005% topical solution. fluticasone propion-salmeterol [Advair Diskus] 250-50 mcg/dose blister with device 1 inh inhalation BID Qty: 60 5RF metoprolol succinate 25 mg tablet extended release 24 hr See Rx Instructions .ROUTE .COMPLEX Qty: 90 3RF Dose Instruction: TAKE ONE TABLET BY MOUTH NIGHTLY AT BEDTIME Rx Instructions: TAKE ONE TABLET BY MOUTH NIGHTLY AT BEDTIME mupirocin 2 % ointment 1 applic topical TID Qty: 15 0RF trazodone 50 mg tablet 50 mg PO BEDTIME Qty: 90 1RF mpzeouyesk-jycvjoklrmgav-oyle [Fioricet] 50-300-40 mg capsule 1 cap PO Q4-6H PRN (Reason: pain) Qty: 10 1RF terbinafine HCl 250 mg tablet 250 mg PO DAILY Qty: 90 1RF docusate sodium 1 each PO .QD psyllium 1 each PO .HS (DME) cpap 0 .Route .MEDSUPPLY emtricitabine-tenofovir (TDF) [Truvada] 200-300 mg tablet 1 tab PO DAILY Qty: 90 1RF ibuprofen 800 mg tablet 800 mg PO Q8H Qty: 90 1RF Rx Instructions: Take 1 tab by mouth up to every 8 hours as needed for ankle pain Referrals: Devyn Beverly DO [Primary Care Provider] -
[2023-06-03 06:30] VITALS: BP 149/90; PULSE 64; O2SAT 96
[2023-06-03] MEDS: ONDANSETRON 4 MG/2 ML INJ IV (06:30)
[2023-06-03] MEDS: SODIUM CHLORIDE 0.9% 1,000 ML 1000 ML IV (06:30)
[2023-06-03] MEDS: MORPHINE 4 MG/ML INJ IV (06:30)
[2023-06-03 06:32] LABS: Add Manual Diff / Slide Review NO; Basophils Absolute Auto 100 /uL (0-100); Basophils Percent Auto 1.1 % (0-2); Eosinophils Absolute Auto 300 /uL (0-450); Eosinophils Percent Auto 3.7 % (2-4); Hematocrit 46.8 % (41-53); Hemoglobin 16.3 g/dL (13.5-17.5); Lymphocytes Absolute Auto 1600 /uL (1100-4500); Lymphocytes Percent Auto 20.9 % (25-40); Mean Corpuscular HGB Conc 34.7 % (30-36); Mean Corpuscular Hemoglobin 29.1 PG (26-34); Mean Corpuscular Volume 83.8 fL (80-100); Monocytes Absolute Auto 500 /uL (0-900); Monocytes Percent Auto 6.9 % (3-14); Neutrophils Absolute Auto 5100 /uL (1500-7000); Neutrophils Percent Auto 67.4 % (50-75); Platelet Count 309 X10^3/uL (150-400); Red Blood Cell Count 5.59 X10^6/uL (4.5-5.9); Red Cell Distribution Width 13.5 % (11.6-14.8); White Blood Cell Count 7.6 X10^3/uL (4.5-11.0)
[2023-06-03 06:42] LABS: Alanine Aminotransferase 33 IU/L (<50); Albumin 4.4 g/dL (3.5-5.0); Albumin Globulin Ratio 1.6 (1.0-2.8); Alkaline Phosphatase 63 U/L (38-126); Aspartate Aminotransferase 28 IU/L (17-59); BUN Creatinine Ratio 13.3 (6-22); Bilirubin Total 0.6 mg/dL (0.2-1.3); Blood Urea Nitrogen 12 mg/dL (9-20); Calcium 9.5 mg/dL (8.4-10.2); Carbon Dioxide 19 mmol/L (22-32); Chloride 109 mmol/L (98-107); Estimated Glomerular Filt Rate > 60 mL/min (>60); Globulin 2.8 g/dL (1.7-4.1); Glucose 132 mg/dL (70-100); HEMOLYSIS 17 (0-50); Lipase 114 U/L (23-300); Potassium 4.1 mmol/L (3.4-5.1); Sodium 138 mmol/L (137-145); Total Protein 7.2 g/dL (6.3-8.2)
[2023-06-03 07:35] VITALS: BP 129/80; PULSE 71; RESP 16; O2SAT 96
[2023-06-03] MEDS: KETOROLAC 30 MG/ML VIAL 15 MG IV (07:46)
[2023-06-03 08:00] VITALS: BP 116/69; PULSE 66; RESP 18; O2SAT 94
[2023-06-03 08:30] VITALS: BP 107/66; PULSE 64; RESP 18; O2SAT 93
[2023-06-03 08:32] LABS: Appearance Urine UA CLEAR; Bilirubin Urine UA NEGATIVE (NEGATIVE); Color Urine UA YELLOW; Glucose Urine UA NEGATIVE (Negative); Ketones Urine UA NEGATIVE (NEGATIVE); Leukocyte Esterase Urine UA NEGATIVE (NEGATIVE); Nitrite Urine UA NEGATIVE (Negative); Occult Blood Urine UA 3+ (Negative); Protein Urine UA NEGATIVE (Negative); Specific Gravity Urine UA <=1.005 (1.000-1.035); Urobilinogen Urine UA 0.2 E.U./dL (0.2)
[2023-06-03 08:57] LABS: Bacteria Urine Occasional (0-1); Culture Indicated Urine Cult Not Indicated; RBC Urine 10-30/HPF (0-5/HPF); Squamous Epithelial Cell Urine 0-1 /HPF (0-5/HPF); WBC Urine 1-5/HPF (0-5/HPF)
== END 2023-06-03 09:14 | disposition home or self-care (01) ==
PROVIDERS: Emergency Medicine; Emergency Provider Emergency Medicine; PCP Family Medicine
DX: N20.1 Calculus of ureter (principal); R11.2 Nausea with vomiting, unspecified
CPT/HCPCS: 36415; 74177; 80053; 81001; 83690; 85025; 96361; 96374; 96375; 99284; J1885; J2270; J2405; Q9967

== ENCOUNTER → 2023-08-02 19:41 | Outpatient (ROUT) | payer OTHER, SELFPAY ==
[2023-08-02 21:16] LABS: Urine N gonorrhoeae NOT DETECTED
[2023-08-02 21:22] LABS: Urine Chlamydia NOT DETECTED
== END ==
PROVIDERS: PCP Family Medicine; Visit Provider Nurse Practitioner
DX: N48.89 Other specified disorders of penis (principal)
CPT/HCPCS: 87491; 87591

== ENCOUNTER → 2023-08-13 15:06 | Outpatient (CLI) | payer OTHER, SELFPAY ==
--- NOTE | 2023-08-13 15:08 | DI.CT.S_ITS ---
PROCEDURE: CT KIDNEY URETER BLADDER (KUB) INDICATIONS: hematuria, hx kidney stones, penile pain TECHNIQUE: Axial sections were acquired from the lung bases to the pubic symphysis. Coronal and sagittal reformats were performed. For radiation dose reduction, the following was used: automated exposure control, adjustment of mA and/or kV according to patient size. COMPARISON: None. FINDINGS: Image quality: Diagnostic. Lower Chest: No significant findings. URINARY: Right Kidney: No stones or hydronephrosis. Right Ureter: No hydroureter. Left Kidney: No stones or hydronephrosis. Left Ureter: No hydroureter. Bladder: Normal wall thickness. No stones. ABDOMEN: Liver: No contour-deforming solid mass. Subcentimeter hypoattenuating lesion in the right hepatic lobe, too small to characterize by CT. Gallbladder: No radiopaque gallstones or wall thickening. Biliary ducts: No biliary dilation. Pancreas: No ductal dilation. Spleen: Size is within normal limits. Adrenal Glands: No adrenal nodules. Stomach and Bowel: Normal colonic caliber, without significant wall thickening. Colonic diverticulosis without evidence of diverticulitis. Peritoneum: No abnormal intraperitoneal fluid. No free air. Central mesenteric fat stranding without adenopathy, likely indicating a benign process. Ventral Wall: No hernia. Abdominal Nodes: No enlarged retroperitoneal or mesenteric lymph nodes. Vessels: Aorta and inferior vena cava are normal in size. PELVIS: Pelvic Organs: Unremarkable. Pelvic Nodes: Unremarkable. Miscellaneous: No inguinal hernias are seen. Bones: Unremarkable. IMPRESSION: No obstructing stones or hydronephrosis. Colonic diverticulosis without evidence of diverticulitis. Dictated by: Sahil Crawley M.D. on 08/13/2023 at 16:45 Approved by: Sahil Crawley M.D. on 08/13/2023 at 16:47
== END ==
PROVIDERS: PCP Family Medicine; Referring Provider Nurse Practitioner; Visit Provider Nurse Practitioner
DX: N20.0 Calculus of kidney (principal); R31.9 Hematuria, unspecified; K57.90 Diverticulosis of intestine, part unspecified, without perforation or abscess without bleeding
CPT/HCPCS: 74176

== ENCOUNTER → 2024-04-06 15:29 | Outpatient (CLI) | payer OTHER, SELFPAY ==
--- NOTE | 2024-04-06 15:31 | DI.US.S_ITS ---
PROCEDURE: US VENOUS INSUFFICIENCY BILAT INDICATIONS: EDEMA AND PAIN. HISTORY OF HYPERTENSION. TECHNIQUE: Real time scanning was performed of the lower extremity venous system, with imaging documentation, as well as Color and pulse Doppler interrogation. COMPARISON: None. FINDINGS: RIGHT LOWER EXTREMITY: The deep veins are normally compressible, and free of intraluminal thrombus. Color and pulse Doppler demonstrate normal intravascular flow. There is normal augmentation with distal compression maneuver. Greater saphenous vein (GSV): Normally 4 mm or less in diameter, with any reflux less than 0.5 seconds. Saphenofemoral junction (SFJ): 9 mm. Reflux time 1.3 seconds. Proximal GSV: 5 mm. No reflux. Mid GSV: 5 mm. No reflux. Distal GSV: 5 mm. No reflux. Calf GSV: 3 mm, and no reflux. Anterior accessory GSV (AAGSV): Reflux involving an anterior accessory GSV measuring 5 mm with reflux time of 2.5 seconds in the upper thigh Small saphenous vein (SSV): Posterior calf, draining into popliteal vein. Posterior calf: 3 mm. No reflux. Vein of Giacomini (posterior thigh connection between GSV and SSV): Anatomic variant not seen. LEFT LOWER EXTREMITY: The deep veins are normally compressible, and free of intraluminal thrombus. Color and pulse Doppler demonstrate normal intravascular flow. There is normal augmentation with distal compression maneuver. Greater saphenous vein (GSV): Normally 4 mm or less in diameter, with any reflux less than 0.5 seconds. Saphenofemoral junction (SFJ): 13 mm. Reflux time 0.9 seconds. Proximal GSV: 6 mm. No reflux. Mid GSV: 3 mm. No reflux. Distal GSV: 3 mm. Reflux time 0.6 seconds. Calf GSV: 3 mm. No reflux. Anterior accessory GSV (AAGSV): Anatomic variant not present across anterior thigh. Small saphenous vein (SSV): Posterior calf, draining into popliteal vein. Posterior calf: 7 mm. No reflux. Vein of Giacomini (posterior thigh connection between GSV and SSV): Anatomic variant not seen. Diffuse edema is noted involving the posterior left calf IMPRESSION: 1. Superficial venous insufficiency involving bilateral GSV at the saphenofemoral junction. 2. Anterior accessory GSV on the right demonstrating venous insufficiency in the upper thigh. Dictated by: Josue Elliott M.D. on 04/07/2024 at 8:13 Approved by: Josue Elliott M.D. on 04/07/2024 at 8:19
== END ==
LOC: US 15:30
PROVIDERS: PCP Family Medicine; Referring Provider Physician Assistant Medical; Visit Provider Physician Assistant Medical
DX: I87.2 Venous insufficiency (chronic) (peripheral) (principal); M79.89 Other specified soft tissue disorders
CPT/HCPCS: 93970

== ENCOUNTER → 2024-05-22 07:50 | Outpatient (CLI) | payer OTHER, SELFPAY ==
--- NOTE | 2024-05-22 07:51 | DI.ECHO.S_ITS ---
[facility]+ [facility] : : [address] : : [place] : : [id number] : : Phone: [phone] Echocardiogram Report + + :Name: ZEE WILSON Study Date: 05/22/2024 Height: 69 in : [facility]: Weight: 308 lb : : Gender: Male BSA: 2.5 m2 : :: 1970 Age: 53 yrs BP: 127/89 mmHg: :Reason For Study: R/O CONGESTIVE HEART FAILURE : :Ordering Physician: LAKE HOPKINS Performed By: Roseanna Taveras : :Referring: LAKE HOPKINS : + + Interpretation Summary Normal left ventricle size with ejection fraction 60-65%. No significant valvular abnormality. Procedure: A two-dimensional transthoracic echocardiogram with color flow and Doppler was performed. The study quality was technically adequate. There is no prior echocardiogram noted for this patient. The patient was in sinus bradycardia with heart rates between 47-56 bpm during the exam. Left Ventricle: The left ventricle is normal in size and wall thickness. The ejection fraction is estimated to be 60-65%. There are no obvious focal wall motion abnormalities noted but poor endocardial definition reduces the sensitivity for the detection of such. Diastolic parameters suggest probable normal left ventricular diastolic function and normal filling pressures. Right Ventricle: The right ventricle is normal in size and function. Atria: The left atrial size is normal. Right atrial size is normal. There is no Doppler evidence for an interatrial shunt. Mitral Valve: The mitral valve leaflets appear to open well. There is trace mitral regurgitation. Aortic Valve: The aortic valve is trileaflet. The aortic valve opens well. There is no aortic valve stenosis. No aortic regurgitation is present. Tricuspid Valve: The tricuspid valve leaflets are thin and pliable. There is trace tricuspid regurgitation. Pulmonary artery pressures cannot be estimated because of the lack of a measurable TR jet velocity. Pulmonic Valve: The pulmonic valve leaflets are thin and pliable; valve motion is normal. There is mild pulmonic regurgitation. Great Vessels: The aortic root is normal size. The dimensions of the ascending aorta are normal. The inferior vena cava was not well visualized. Pericardium/ Pleura There is no pericardial effusion. There is no pleural effusion. MMode/2D Measurements & Calculations LVIDd: 5.1 cm LVOT diam: 2.2 cm LVIDs: 3.0 cm Ao root diam: 3.4 cm FS: 41.5 % asc Aorta Diam: 3.1 cm IVSd: 0.79 cm Ao Arch Diam (Prox Trans): 3.3 cm LVPWd: 0.87 cm LV winn. diameter/BSA (cm/m^2): 2.0 LV sys. diameter/BSA (cm/m^2): 1.2 LA A2 area: 23.6 cm2 RA long axis: 5.5 cm LA A4 area: 20.8 cm2 RA area: 17.6 cm2 LA length (vol): 6.0 cm RA vol: 48.0 ml LA vol: 69.5 ml RA : 19.3 ml/m2 LA vol index: 28.0 ml/m2 RVD1 (basal): 4.4 cm RVD2 (mid): 3.8 cm TAPSE: 2.2 cm Doppler Measurements & Calculations Ao V2 max: 127.8 cm/sec LVOT Max Jerome: 102.1 cm/sec Ao V2 mean: 85.9 cm/sec LV V1 max P.2 mmHg Ao max P.5 mmHg LV V1 VTI: 22.6 cm Ao mean P.3 mmHg SANDRA(I,D): 2.9 cm2 Ao V2 VTI: 29.1 cm SANDRA(V,D): 3.0 cm2 sev ratio: 0.78 SANDRA indexed to BSA (cm^2/m^2): 1.2 MV E max jerome: 84.0 cm/sec PA V2 max: 85.5 cm/sec MV A max jerome: 60.9 cm/sec PA V2 mean: 56.3 cm/sec MV E/A: 1.4 PA mean P.5 mmHg Med Peak E' Jerome: 7.8 cm/sec PA pr(Accel): 10.5 mmHg E/E' med: 10.7 Lat Peak E' Jerome: 11.3 cm/sec E/E' lat: 7.5 E/e' average: 9.1 MV dec time: 0.23 sec SV(LVOT): 84.3 ml Electronically signed by: Ismael Urbano on Reading Physician:05/22/2024 11:07 AM
== END ==
LOC: ECHO 07:50
PROVIDERS: PCP Family Medicine; Referring Provider Family Medicine; Visit Provider Family Medicine
DX: I50.9 Heart failure, unspecified (principal); I37.1 Nonrheumatic pulmonary valve insufficiency
CPT/HCPCS: 93306

== ENCOUNTER → 2024-06-26 13:53 | Outpatient (CLI) | payer OTHER, SELFPAY ==
--- NOTE | 2024-06-26 13:55 | DI.RAD.S_ITS ---
PROCEDURE: XR FOOT LT MIN 3V INDICATIONS: eval foot pain TECHNIQUE: 3 views of the foot were acquired. COMPARISON: [facility], , XR FOOT RT MIN 3V, 11/17/2019, 14:17. FINDINGS: Bones: No fractures or dislocations. No suspicious bony lesions. Mild midfoot degenerative change. Soft tissues: No tibiotalar joint effusion. Achilles tendon appears normal. IMPRESSION: No visualized acute fracture or dislocation. However, if clinical concern and/or pain persist, short interval imaging followup in 7-10 days is recommended, as occult injury cannot be definitively excluded. Dictated by: Brisa Smith M.D. on 06/26/2024 at 16:09 Approved by: Brisa Smith M.D. on 06/26/2024 at 16:10
--- NOTE | 2024-06-26 13:55 | DI.RAD.S_ITS ---
PROCEDURE: XR FOOT RT MIN 3V INDICATIONS: eval foot pain TECHNIQUE: 3 views of the foot were acquired. COMPARISON: [facility], , XR FOOT RT MIN 3V, 11/17/2019, 14:17. FINDINGS: Bones: No fractures or dislocations. No suspicious bony lesions. Mild midfoot degenerative change. Soft tissues: No tibiotalar joint effusion. Achilles tendon appears normal. IMPRESSION: No visualized acute fracture or dislocation. However, if clinical concern and/or pain persist, short interval imaging followup in 7-10 days is recommended, as occult injury cannot be definitively excluded. Dictated by: Brisa Smith M.D. on 06/26/2024 at 16:09 Approved by: Brisa Smith M.D. on 06/26/2024 at 16:09
== END ==
PROVIDERS: PCP Family Medicine; Referring Provider Family Medicine; Visit Provider Family Medicine
DX: M79.671 Pain in right foot (principal); M79.672 Pain in left foot; G89.29 Other chronic pain
CPT/HCPCS: 73630

== ENCOUNTER → 2024-08-14 12:41 | Outpatient (CLI) | payer OTHER, SELFPAY ==
--- NOTE | 2024-08-14 12:42 | DI.RAD.S_ITS ---
PROCEDURE: XR ABDOMEN MIN 2V INDICATIONS: Low abdominal discomfort TECHNIQUE: 2 views of the abdomen were acquired. COMPARISON: None. FINDINGS: Surgical changes and devices: None. Bowel: No pneumoperitoneum. The bowel gas pattern is normal. Moderate stool burden. Soft tissues: No masses; visualized solid organ contours appear normal in size. No suspicious abdominal calcifications. Bones: No suspicious bony abnormalities. IMPRESSION: No radiographic evidence of bowel obstruction. Dictated by: Pierce York M.D. on 08/14/2024 at 16:21 Approved by: Pierce York M.D. on 08/14/2024 at 16:22
== END ==
PROVIDERS: PCP Family Medicine; Referring Provider Nurse Practitioner Family; Visit Provider Nurse Practitioner Family
DX: R10.9 Unspecified abdominal pain (principal)
CPT/HCPCS: 74019

== ENCOUNTER 2024-08-14 18:54 | Emergency (ER) | payer OTHER, SELFPAY ==
[2024-08-14] VITALS (8 sets, daily range): BP systolic 133–149; BP diastolic 65–93; PULSE 70–96; RESP 18; TEMP 36.6; O2SAT 94–97; BMI 43.1
--- NOTE | 2024-08-14 19:05 | EKG_ITS ---
[address] [address] Test Date: 2024-08-14 Pat Name: Roberth Mayen Department: [facility] Room: Gender: Male Bag Turner: NATHAN MART : 1970 Requested By: Order Number: [id number] Reading MD: Osmel Vásquez Measurements Intervals [place] Rate: 82 P: 28 MD: 192 QRS: -4 QRSD: 84 T: 50 QT: 360 QTc: 420 Interpretive Statements Normal sinus rhythm Electronically Signed On 08-15-2024 18:28:41 PST by Osmel Vásquez
--- NOTE | 2024-08-14 19:44 | ED_ITS ---
HPI - Abdominal Pain General Chief Complaint: Abdominal Pain Stated Complaint: abd px, urinary issue Time Seen by Provider: 08/14/24 19:41 History of Present Illness HPI narrative: Patient is a 54-year-old male history of hypertension hyperlipidemia presenting today with lower abdominal pain ongoing for the last 36 hours. Reports that it is now radiating to his back it is more in the right side left side. He has had ongoing nausea no vomiting. Took Compazine prior to arrival. No fever or chills. He does have enlarged prostate but no significant painful frequent urination. Feels like he has been belching but no actual chest pain has been going 2 weeks. Related Data Home Medications Medication Instructions Recorded Confirmed psyllium [Metamucil (sugar)] 1 each PO .HS 02/12/20 08/14/24 cpap 08/11/21 08/14/24 Previous Rx's Medication Instructions Recorded mupirocin 2 % topical ointment 1 applic topical TID #15 grams 09/29/22 terbinafine HCl 250 mg tablet 250 mg PO DAILY #90 tabs 12/29/23 ibuprofen 800 mg tablet 800 mg PO Q8H #90 tabs 03/17/24 amlodipine 5 mg tablet 5 mg PO DAILY #90 tabs 06/26/24 atorvastatin 20 mg tablet 20 mg PO BEDTIME #90 tabs 06/26/24 bupropion HCl 150 mg 24 hr tablet, 150 mg PO QAM #30 tabs 06/26/24 extended release hydrochlorothiazide 12.5 mg tablet 12.5 mg PO DAILY #90 tabs 06/26/24 metoprolol succinate 25 mg 25 mg PO ONCE PM #90 tabs 06/26/24 tablet,extended release 24 hr sumatriptan succinate 100 mg tablet See Rx Instructions PO .COMPLEX 06/26/24 #10 tabs tamsulosin 0.4 mg capsule (Flomax) 0.8 mg (2 x 0.4 mg) PO BEDTIME 06/26/24 #180 caps trazodone 50 mg tablet 50 mg PO ONCE PM #90 tabs 06/26/24 vwfewscuuk-weuwuzktmvpqo-wspjqgjl 1 cap PO Q4-6H PRN pain #20 caps 07/03/24 50 mg-300 mg-40 mg capsule (Fioricet) prochlorperazine maleate 10 mg 10 mg PO TID PRN nausea and 07/03/24 tablet (Compazine) vomiting #20 tabs albuterol sulfate 90 mcg/actuation 1 - 2 puff inhalation QID PRN 07/06/24 aerosol inhaler (Ventolin HFA) shortness of breath or wheezing, or cough #6.7 grams emtricitabine 200 mg-tenofovir 1 tab PO DAILY #90 tabs 07/06/24 disoproxil fumarate 300 mg tablet (Truvada) fluticasone 250 mcg-salmeterol 50 1 inh inhalation BID #60 ea 07/06/24 mcg/dose blistr powdr for inhalation (Advair Diskus) nortriptyline 10 mg capsule 10 mg PO BEDTIME #30 caps 07/28/24 ciprofloxacin HCl 500 mg tablet 500 mg PO BID #14 tabs 08/14/24 (Cipro) metronidazole 500 mg tablet 500 mg PO Q8H 7 days #21 tabs 08/14/24 Allergies Allergy/AdvReac Type Severity Reaction Status Date / Time Sulfa (Sulfonamide Allergy Severe Rash Verified 08/14/24 11:54 Antibiotics) lisinopril AdvReac Mild Cough Verified 08/14/24 11:54 Patient History Medical History Migraine headache with aura Slow urinary stream Splitting of urinary stream Post-void dribbling Secondhand smoke exposure History of tobacco use History of hematuria BPH w urinary obs/LUTS Hx of chest pain Common wart Seasonal allergic rhinitis History of nephrolithiasis BPH (benign prostatic hyperplasia) Concern about STD in male without diagnosis Onychomycosis Cough Well adult exam Hyperglycemia Hyperlipidemia Sleep apnea Fatigue Insomnia GERD (gastroesophageal reflux disease) Thoracic myofascial strain Asthma GERD (gastroesophageal reflux disease) Well adult exam Wears glasses Hearing loss Skin tag (~2015) Substance abuse (~2006) Depression (~1981) Migraines (~2014) Headache (~2015) Foot pain (~2013) Chronic back pain (~2007) Ankle pain (~2013) Chicken pox (~1976) Diverticular disease (~2011) Hypertension Surgical History Anesthesia History of oral surgery (~2003) Family History Father Hypertension Hyperlipidemia Cancer Anomaly of ear with impairment of hearing Mother Hypertension Active asthma Anomaly of ear with impairment of hearing Hyperlipidemia Son Migraines Social History marital status: household members: other Smoking Status: Current every day smoker Tobacco: How many years used: 28 quit status: has quit before second hand exposure: Yes alcohol intake: former substance use type: former substance user, marijuana, crack/cocaine and methamphetamine caffeine: Yes Smoking Status: Current every day smoker tobacco type: vaping Exam Initial Vital Signs Initial Vital Signs: Vital Signs Temperature 97.9 F 08/14/24 18:58 Pulse Rate 96 H 08/14/24 18:58 Respiratory Rate 18 08/14/24 18:58 Blood Pressure 149/83 H 08/14/24 18:58 Pulse Oximetry 96 08/14/24 18:58 Oxygen Delivery Method Room Air 08/14/24 18:58 GENERAL: Alert well-appearing 54-year-old male and in no acute distress. HEENT: Head atraumatic,EOMI, pupils reactive, face symmetric, moist mucous membranes CARDIOVASCULAR: Regular rate and rhythm without murmurs, rubs or gallops. RESPIRATORY: Breath sounds equal bilaterally, no wheezes rales or rhonchi. ABDOMEN: Soft mild lower suprapubic pain more on right than left : No CVA tenderness EXTREMITIES: Normal range of motion, no clubbing or edema. Neurovascularly intact NEUROLOGICAL: Alert and oriented x4.Normal gait and speech. Cranial nerves II through XII grossly intact. SKIN: Warm, dry, no laceration, no petechiae, no rashes or lesions. Course Orders Ordered: ED Orders 08/14/24 19:05 EKG-12 Lead Stat 08/14/24 19:39 Complete Blood Count AUTO DIFF Stat Comprehensive Metabolic Panel Stat Lipase Stat 08/14/24 21:00 Urine Culture Stat Urine Microscopic Stat 08/14/24 21:46 CT abdomen pelvis w con Stat Discontinued Medications Ciprofloxacin (Ciprofloxacin 250 Mg Tablet) 500 mg PO NOW ONE Stop: 08/14/24 22:57 Last Admin: 08/14/24 23:09 Dose: 500 mg Documented By: JYOTI Ketorolac Tromethamine (Ketorolac 30 Mg/Ml Vial) 15 mg IV NOW ONE Stop: 08/14/24 21:47 Last Admin: 08/14/24 22:04 Dose: 15 mg Documented By: Metronidazole (Metronidazole 500 Mg Tablet) 500 mg PO NOW ONE Stop: 08/14/24 22:57 Last Admin: 08/14/24 23:09 Dose: 500 mg Documented By: JYOTI Ondansetron HCl (Ondansetron 4 Mg/2 Ml Inj) 4 mg IV NOW PRN PRN Reason: Nausea And Vomiting Ondansetron HCl (Ondansetron 4 Mg Odt) 4 mg PO NOW PRN PRN Reason: Nausea And Vomiting Ondansetron HCl (Ondansetron 4 Mg/2 Ml Inj) 4 mg IV NOW ONE Stop: 08/14/24 21:47 Last Admin: 08/14/24 22:05 Dose: 4 mg Documented By: Vital Signs Vital signs: Vital Signs - 8 hr 08/14/24 18:58 08/14/24 20:56 08/14/24 20:56 Temperature 97.9 F Pulse Rate 96 H 83 Respiratory Rate 18 Blood Pressure 149/83 H 143/89 H Pulse Oximetry 96 97 Oxygen Delivery Method Room Air 08/14/24 21:00 08/14/24 21:00 08/14/24 21:30 Temperature Pulse Rate 71 Respiratory Rate Blood Pressure 133/93 H 135/65 Pulse Oximetry 96 Oxygen Delivery Method 08/14/24 21:30 08/14/24 22:07 08/14/24 22:08 Temperature Pulse Rate 70 72 Respiratory Rate Blood Pressure 136/84 Pulse Oximetry 94 95 Oxygen Delivery Method 08/14/24 22:08 08/14/24 22:30 08/14/24 23:00 Temperature Pulse Rate 75 72 73 Respiratory Rate Blood Pressure Pulse Oximetry 94 95 95 Oxygen Delivery Method MDM - Abdominal Pain Lab Data 08/14/24 19:39 08/14/24 19:39 Labs: Lab Results 08/14/24 08/14/24 Range/Units 19:39 21:00 WBC 8.4 (4.5-11.0) X10^3/uL RBC 5.36 (4.5-5.9) X10^6/uL Hgb 15.3 (13.5-17.5) g/dL Hct 44.5 (41-53) % MCV 83.1 (80-100) fL MCH 28.6 (26-34) PG MCHC 34.5 (30-36) % RDW 13.0 (11.6-14.8) % Plt Count 346 (150-400) X10^3/uL Neut % (Auto) 64.1 (50-75) % Lymph % (Auto) 22.4 L (25-40) % [place] % (Auto) 7.6 (3-14) % Eos % (Auto) 5.0 H (2-4) % Baso % (Auto) 0.9 (0-2) % Neut # (Auto) 5400 (4887-1302) /uL Lymph # (Auto) 1900 (1407-7801) /uL [place] # (Auto) 600 (0-900) /uL Eos # (Auto) 400 (0-450) /uL Baso # (Auto) 100 (0-100) /uL Sodium 136 L (137-145) mmol/L Potassium 3.8 (3.4-5.1) mmol/L Chloride 105 (98-107) mmol/L Carbon Dioxide 22 (22-32) mmol/L BUN 10 (9-20) mg/dL Creatinine 0.82 (0.66-1.25) mg/dL Estimated GFR > 60 (>60) mL/min BUN/Creatinine Ratio 12.2 (6-22) Glucose 96 (70-100) mg/dL Calcium 9.1 (8.4-10.2) mg/dL Total Bilirubin 0.4 (0.2-1.3) mg/dL AST 26 (17-59) IU/L ALT 32 (<50) IU/L Alkaline Phosphatase 73 (38-126) U/L Total Protein 7.0 (6.3-8.2) g/dL Albumin 4.4 (3.5-5.0) g/dL Globulin 2.6 (1.7-4.1) g/dL Albumin/Globulin Ratio 1.7 (1.0-2.8) Lipase 537 H (23-300) U/L Urine RBC 0-1/hpf D (0-5/HPF) Urine WBC 0-1/hpf (0-5/HPF) Ur Squamous Epith Cells 1-5 /hpf (0-5/HPF) Amorphous Sediment 2+ Urine Bacteria Few (2-10) H (None) Vol Urine Centrifuged 10ml (spun) Point of care testing: Urine Dip Bedside Urine Glucose Negative Bedside Urine Bilirubin - Negative Bedside Urine Ketone - Negative Urine Specific [place] 1.015 Bedside Urine Occult Blood - Negative Bedside Urine pH 6.5 Bedside Urine Protein +/- 15 Bedside Urine Urobilinogen 1+ 2mg Bedside Urine Nitrite - Negative Bedside Urine Leukocytes - Negative Esterase Imaging Data CT scan - abdomen/pelvis: Radiologist's Impression: PROCEDURE: CT ABDOMEN PELVIS W CON INDICATIONS: right flank and lower quad pain TECHNIQUE: After the administration of intravenous contrast, axial sections acquired from the lung bases to the pubic symphysis. Coronal and sagittal reformats were performed. For radiation dose reduction, the following was used: automated exposure control, adjustment of mA and/or kV according to patient size. COMPARISON: [facility], CT, CT ABDOMEN PELVIS W CON, 06/03/2023, 6:39. FINDINGS: Image quality: Diagnostic. Lower Chest: No significant findings. Small hiatal hernia is seen. ABDOMEN: Liver: No solid mass. Moderate hepatic steatosis. Gallbladder: No radiopaque gallstones or wall thickening. Biliary ducts: No biliary dilation. Pancreas: No ductal dilation. Spleen: Size is within normal limits. Adrenal Glands: No adrenal nodules. Kidneys and Ureters: No hydronephrosis. No solid mass. No complex renal cystic lesion which requires follow up. Stomach and Bowel: There is no bowel obstruction. No gastric or small bowel wall thickening. Appendix is visualized in right lower quadrant and is within normal limits. Mild fecal stasis throughout the colon is seen. Extensive colonic diverticulosis is noted. There is very mild pericolonic fat stranding seen involving distal descending colon and proximal sigmoid colon in left lower quadrant with suggestion of colonic wall thickening in this area. No abscess collection. Peritoneum: No abnormal intraperitoneal fluid. No free air. Ventral Wall: No significant ventral hernia. Abdominal Nodes: No retroperitoneal or mesenteric adenopathy by size criteria. Vessels: Aorta and inferior vena cava are normal in size. PELVIS: Pelvic Organs: Unremarkable. Bladder: No bladder wall thickening, accounting for underdistention. Pelvic Nodes: No enlarged lymph nodes. Miscellaneous: No inguinal hernias are seen. Bones: No aggressive osseous abnormality. IMPRESSION: 1. Finding is concerning for colitis versus diverticulitis involving distal descending colon/proximal sigmoid colon in left lower quadrant with wall thickening and mild pericolonic fat stranding. No abscess collection. 2. No bowel obstruction. Normal appendix. No other area of abnormal bowel wall thickening. No free fluid or free air. 3. Moderate hepatic steatosis, no discrete hepatic lesion. Dictated by: Flavio Leon M.D. on 08/14/2024 at 22:15 ECG Data Attestation: I personally reviewed and interpreted this ECG as follows: Prior ECG tracings: not available for review Interpretation: Normal sinus rhythm rate 82 NM interval 192 QRS [address] changes MDM Narrative Medical decision making narrative: MDM CC: Abdominal pain Complicating co-morbidities: Hypertension hyperlipidemia Medical records reviewed: Walk-in clinic visit earlier today has been reviewed Differential considered: Diverticulitis nephrolithiasis appendicitis, ischemia Exam documented above, pertinent findings include: Tender suprapubic and right lower quadrant Lab Test results independently reviewed as above. Pertinent findings: WBC 8.4 no anemia Sodium 136 creatinine 0.82 Bilirubin liver enzymes with a durable limits lipase 537 Independently reviewed EKG as above Sinus rhythm no ischemia Imaging studies independently reviewed: CT scan abdomen and pelvis concerning for diverticulitis Treatments: Cipro Flagyl Toradol Re-evaluations: Patient is feeling better after Toradol Discussion: Patient 54-year-old male presenting today lower abdominal pain worse over the last [address] does show diverticulitis. No complication. Blood work is overall reassuring he has no significant leukocytosis. Pain is not out proportion. Discharge Plan Departure Patient Disposition: Home Clinical Impression: Diverticulitis Instructions: Diverticulitis Activity Restrictions/Additional Instructions: *You have been diagnosed with diverticulitis *What to do: At this time please stay hydrated eat food as tolerated *Continue to take medications as directed Cipro 500 mg twice a day for 7 days Flagyl 500 mg 3 times a day for 7 days Tylenol or Motrin as needed for pain *Follow up with your primary care provider in 2-3 days or call [phone] *Return to ER if you should have increasing abdominal pain fever bloody stool or any new, worsening or concerning symptoms Prescriptions: New metronidazole 500 mg tablet 500 mg PO Q8H 7 Days Qty: 21 0RF ciprofloxacin HCl [Cipro] 500 mg tablet 500 mg PO BID Qty: 14 0RF No Action mupirocin 2 % ointment 1 applic topical TID Qty: 15 0RF terbinafine HCl 250 mg tablet 250 mg PO DAILY Qty: 90 1RF ibuprofen 800 mg tablet 800 mg PO Q8H Qty: 90 1RF Rx Instructions: Take 1 tab by mouth up to every 8 hours as needed for ankle pain albuterol sulfate [Ventolin HFA] 90 mcg/actuation HFA aerosol inhaler 1 - 2 puff INHALATION QID PRN (Reason: shortness of breath or wheezing, or cough) Qty: 6.7 4RF Rx Instructions: 1-2 puffs inh as needed shortness of breath,wheezing,cough emtricitabine-tenofovir (TDF) [Truvada] 200-300 mg tablet 1 tab PO DAILY Qty: 90 1RF fluticasone propion-salmeterol [Advair Diskus] 250-50 mcg/dose blister with device 1 inh inhalation BID Qty: 60 5RF nortriptyline 10 mg capsule 10 mg PO BEDTIME Qty: 30 3RF psyllium 1 each PO .HS (DME) cpap 0 .Route .MEDSUPPLY amlodipine 5 mg tablet 5 mg PO DAILY Qty: 90 3RF atorvastatin 20 mg tablet 20 mg PO BEDTIME Qty: 90 3RF bupropion HCl 150 mg tablet extended release 24 hr 150 mg PO QAM Qty: 30 2RF Rx Instructions: Start this dose after completing the 75 mg prescription hydrochlorothiazide 12.5 mg tablet 12.5 mg PO DAILY Qty: 90 3RF metoprolol succinate 25 mg tablet extended release 24 hr 25 mg PO ONCE PM Qty: 90 3RF sumatriptan succinate 100 mg tablet See Rx Instructions PO .COMPLEX Qty: 10 2RF Rx Instructions: take 1 tab at onset of headache; if no relief, may repeat 1 tab after at least 2 hrs; max = 2 tabs/24 hrs PO tamsulosin [Flomax] 0.4 mg capsule 0.8 mg PO BEDTIME Qty: 180 3RF Rx Instructions: Take 2 caps at bedtime daily trazodone 50 mg tablet 50 mg PO ONCE PM Qty: 90 1RF [id number] [Fioricet] 50-300-40 mg capsule 1 cap PO Q4-6H PRN (Reason: pain) Qty: 20 1RF prochlorperazine maleate [Compazine] 10 mg tablet 10 mg PO TID PRN (Reason: nausea and vomiting) Qty: 20 1RF Referrals: Devyn Beverly, [Primary Care Provider] - Stand Alone Forms: Patient Portal/API/Survey
[2024-08-14 19:48] LABS: Add Manual Diff / Slide Review NO; Basophils Absolute Auto 100 /uL (0-100); Basophils Percent Auto 0.9 % (0-2); Eosinophils Absolute Auto 400 /uL (0-450); Hematocrit 44.5 % (41-53); Hemoglobin 15.3 g/dL (13.5-17.5); Lymphocytes Absolute Auto 1900 /uL (1100-4500); Lymphocytes Percent Auto 22.4 % (25-40); Mean Corpuscular HGB Conc 34.5 % (30-36); Mean Corpuscular Hemoglobin 28.6 PG (26-34); Mean Corpuscular Volume 83.1 fL (80-100); Monocytes Absolute Auto 600 /uL (0-900); Monocytes Percent Auto 7.6 % (3-14); Neutrophils Absolute Auto 5400 /uL (1500-7000); Neutrophils Percent Auto 64.1 % (50-75); Platelet Count 346 X10^3/uL (150-400); Red Blood Cell Count 5.36 X10^6/uL (4.5-5.9); White Blood Cell Count 8.4 X10^3/uL (4.5-11.0)
[2024-08-14 20:00] LABS: Alanine Aminotransferase 32 IU/L (<50); Albumin 4.4 g/dL (3.5-5.0); Albumin Globulin Ratio 1.7 (1.0-2.8); Alkaline Phosphatase 73 U/L (38-126); Aspartate Aminotransferase 26 IU/L (17-59); BUN Creatinine Ratio 12.2 (6-22); Bilirubin Total 0.4 mg/dL (0.2-1.3); Blood Urea Nitrogen 10 mg/dL (9-20); Calcium 9.1 mg/dL (8.4-10.2); Carbon Dioxide 22 mmol/L (22-32); Chloride 105 mmol/L (98-107); Estimated Glomerular Filt Rate > 60 mL/min (>60); Globulin 2.6 g/dL (1.7-4.1); Glucose 96 mg/dL (70-100); HEMOLYSIS < 15 (0-50); Lipase 537 U/L (23-300); Potassium 3.8 mmol/L (3.4-5.1); Sodium 136 mmol/L (137-145)
[2024-08-14 21:27] LABS: Urine Volume 10mL (spun)
[2024-08-14 21:28] LABS: Amorphous Sediment Urine 2+; Bacteria Urine Few (2-10); RBC Urine 0-1/HPF (0-5/HPF); Squamous Epithelial Cell Urine 1-5 /HPF (0-5/HPF); WBC Urine 0-1/HPF (0-5/HPF)
--- NOTE | 2024-08-14 21:46 | DI.CT.S_ITS ---
PROCEDURE: CT ABDOMEN PELVIS W CON INDICATIONS: right flank and lower quad pain TECHNIQUE: After the administration of intravenous contrast, axial sections acquired from the lung bases to the pubic symphysis. Coronal and sagittal reformats were performed. For radiation dose reduction, the following was used: automated exposure control, adjustment of mA and/or kV according to patient size. COMPARISON: [facility], CT, CT ABDOMEN PELVIS W CON, 06/03/2023, 6:39. FINDINGS: Image quality: Diagnostic. Lower Chest: No significant findings. Small hiatal hernia is seen. ABDOMEN: Liver: No solid mass. Moderate hepatic steatosis. Gallbladder: No radiopaque gallstones or wall thickening. Biliary ducts: No biliary dilation. Pancreas: No ductal dilation. Spleen: Size is within normal limits. Adrenal Glands: No adrenal nodules. Kidneys and Ureters: No hydronephrosis. No solid mass. No complex renal cystic lesion which requires follow up. Stomach and Bowel: There is no bowel obstruction. No gastric or small bowel wall thickening. Appendix is visualized in right lower quadrant and is within normal limits. Mild fecal stasis throughout the colon is seen. Extensive colonic diverticulosis is noted. There is very mild pericolonic fat stranding seen involving distal descending colon and proximal sigmoid colon in left lower quadrant with suggestion of colonic wall thickening in this area. No abscess collection. Peritoneum: No abnormal intraperitoneal fluid. No free air. Ventral Wall: No significant ventral hernia. Abdominal Nodes: No retroperitoneal or mesenteric adenopathy by size criteria. Vessels: Aorta and inferior vena cava are normal in size. PELVIS: Pelvic Organs: Unremarkable. Bladder: No bladder wall thickening, accounting for underdistention. Pelvic Nodes: No enlarged lymph nodes. Miscellaneous: No inguinal hernias are seen. Bones: No aggressive osseous abnormality. IMPRESSION: 1. Finding is concerning for colitis versus diverticulitis involving distal descending colon/proximal sigmoid colon in left lower quadrant with wall thickening and mild pericolonic fat stranding. No abscess collection. 2. No bowel obstruction. Normal appendix. No other area of abnormal bowel wall thickening. No free fluid or free air. 3. Moderate hepatic steatosis, no discrete hepatic lesion. Dictated by: Flavio Leon M.D. on 08/14/2024 at 22:15 Approved by: Flavio Leon M.D. on 08/14/2024 at 22:18
[2024-08-14] MEDS: KETOROLAC 30 MG/ML VIAL 15 MG IV (22:04)
[2024-08-14] MEDS: ONDANSETRON 4 MG/2 ML INJ IV (22:05)
[2024-08-14] MEDS: metroNIDAZOLE 500 MG TABLET PO (23:09)
[2024-08-14] MEDS: CIPROFLOXACIN 250 MG TABLET 500 MG PO (23:09)
== END 2024-08-14 23:19 | disposition home or self-care (01) ==
PROVIDERS: Emergency Provider Emergency Medicine; PCP Family Medicine
DX: K57.32 Diverticulitis of large intestine without perforation or abscess without bleeding (principal); I10 Essential (primary) hypertension; E78.5 Hyperlipidemia, unspecified; N40.0 Benign prostatic hyperplasia without lower urinary tract symptoms; R10.9 Unspecified abdominal pain; F17.200 Nicotine dependence, unspecified, uncomplicated
CPT/HCPCS: 36415; 74019; 74177; 80053; 81003; 81015; 83690; 85025; 87086; 93005; 96374; 96375; 99284; J1885; J2405; Q9967

== ENCOUNTER → 2024-09-26 13:51 | Outpatient (CLI) | payer OTHER, SELFPAY | PROVIDERS: PCP Family Medicine; Visit Provider Urology | DX: N40.1 Benign prostatic hyperplasia with lower urinary tract symptoms (principal); N13.8 Other obstructive and reflux uropathy | CPT/HCPCS: 87086 ==

== ENCOUNTER 2024-10-10 08:03 | Day surgery (SDC) | payer OTHER, SELFPAY ==
[2024-10-06 14:34] VITALS: BMI 42.5
[2024-10-10] VITALS (7 sets, daily range): BP systolic 111–143; BP diastolic 77–89; PULSE 68–79; RESP 11–20; TEMP 36.1–36.4; O2SAT 90–99; BMI 40.6
--- NOTE | 2024-10-10 | PATH_ITS ---
[facility] Accession Number: [id number] No. of containers..01 Tissue . 01 Material submitted: . prostate - PROSTATE CHIPS . 01 Diagnosis: PROSTATE, TURP: Benign prostatic parenchyma with features consistent with benign prostatic hyperplasia. Negative for malignancy. [facility] 10/13/2024 1032 Local . 01 Electronically signed: . Colton Smith MD, PhD, Pathologist NPI- [id number] . 01 Gross description: . Received in formalin with two identifiers and prostate chips, are multiple eid soft tissue fragments, hemorrhagic material, and calculi weighing 2 grams and aggregating to 4.2 x 3.5 x 1.2 cm. The calculi are eid to orange and roughened, and up to 0.5 cm in greatest dimension. All tissue is submitted in A1-A2. ([id number]) /MRV 10/12/2024 1831 Local . 01 Pathologist provided ICD-10: N40.1 . 01 CPT . 592077 Specimen Comment: A courtesy copy of this report has been sent to [phone] Performed at: [address] [id number] MD Sherman Cardona MD Phone: [phone]
[2024-10-10] MEDS: LACTATED RINGERS 1,000 ML 21 ML IV (08:59)
--- NOTE | 2024-10-10 09:21 | PM.PREOP ---
Pre-operative Note COVID-19 COVID-19 status: Not tested Interval Note History & Physical reviewed/Exam performed by Physician: Yes Changes to H&P: No
[2024-10-10] MEDS: CEFAZOLIN 2 GM/100 ML PREMIX 100 ML IV (10:05)
[2024-10-10] MEDS: CEFAZOLIN VIAL 1 GM in SODIUM CHLORIDE 0.9% 100 ML IV (10:05)
--- NOTE | 2024-10-10 10:25 | SUR.OPER ---
Lithotomy on padded OR bed, head on pillow, arms secured on padded arm boards at <90 degrees abduction. Legs secured in padded yellow fins stirrups.
--- NOTE | 2024-10-10 11:34 | P.OP_ITS ---
Operative Date/Time/Diagnoses Date of procedure: 10/10/24 Time of procedure: 11:34 Pre-op diagnosis: BPH with LUTS failing medical management Post-op diagnosis: same Procedure & Clinicians Procedure: 1. Aquablation 2. Transrectal ultrasound of the prostate 3. Transurethral resection of prostate with fulguration 4. Placement of Murphy catheter Same procedure as scheduled: Yes Indications: This 54-year-old male presented to [facility]rology Clinic with complaint of worsening BPH with LUTS failing medical management. He underwent workup which showed an obstructing prostate which was measured at approximately 55 g. Patient had a Q max of 12, AUA symptom score of 25 with a bothersome index of 5 PSA of 1.45 and presents at this time for Aquablation to treat his lower urinary tract symptoms. Surgeon: Marshall Nam Anesthesia Type: General Operative Notes Findings: Findings: Urethral meatus is normal, urethra is normal along its length with normal mucosa. The sphincter is well coapted and the prostate exhibits bilobar obstructive character with minimal bulging into the bladder. Ureteral orifices in normal position with clear efflux. Severe trabeculation cellules and multiple calcifications were noted within the prostate. These were evacuated at the end of the procedure at ultrasound the patient appeared to have a preponderance of peripheral zone and a somewhat smaller but obstructing transition zone. Again there were multiple calcifications noted on the ultrasound the seminal vesicles and vas in normal position configuration echotexture. At the end of the procedure the prostatic fossa was widely patent all chips and stones were evacuated in the ureteral orifices were intact and untouched by the procedure. A 22 [address]ian [address] hematuria catheter was left in place with 45 cc of sterile water in the balloon it was connected to continuous bladder irrigation. Closure Type: not applicable Specimen(s): other (1. Prostate chips 2. Prostate/bladder calcifications) Prosthetic devices, grafts, tissues, transplants, or devices: 22 Ghanaian three-way 30 cc hematuria catheter 45 cc in the balloon. Estimated Blood Loss (mL): 5 Blood products transfused: none Procedure in detail: Procedure in detail: After informed consent was obtained, the patient was identified brought to the operating room where he was placed in the supine position on the table. Once there anesthesia was induced and maintained. Ensur ing an adequate level of anesthesia the patient was transitioned to the lithotomy position where he was secured and stabilized in place. Ensuring an adequate level of anesthesia, after time-out, after administration of antibiotics the patient was prepped in a sterile fashion. At this point the ultrasound probe was inserted after instillation of 60 cc of ultrasound gel into the rectum. The ultrasound probe had been attached to the truss stepper which was attached to the truss articulating arm which he had been attached to the bed. With the ultrasound probe in place the prostate was visualized and the confirmation was made that the prostate was centered and aligned using both the transverse and sagittal views. The bladder neck verumontanum peripheral and transition zones were identified. With the confirmation of alignment. The patient was then draped in a sterile fashion. With the patient draped the 24 Ghanaian aqua beam handpiece was inserted through the urethra prostate and it of the bladder under direct vision. Brief cystoscopy was performed. As it was inserted the level of the external sphincter verumontanum bladder neck and ureteral orifices were noted by vision and cystoscopy and by live ultrasound. The aqua beam handpiece was then secured to the handpiece articulating arm. The alignment of the aqua beam handpiece and truss probe was done to make sure that they were parallel and colinear. The Aquablation nozzle was then confirmed to be centered and anterior to the bladder neck. The cystoscope was then retracted to the level of the verumontanum and external sphincter and it was left just proximal to that is the tip of the scope was left just proximal to the external sphincter. The alignment of the truss probe and hand piece was once again confirmed and compression applied via the truss probe. Horizontal alignment of the hand piece water jet was then performed and adjustments were made to make sure that it was at the 3 and 9 o'clock position. The treatment planning was then performed with real-time ultrasound. Real-time ultrasound was used to visualize the contour of the prostate depth and radial angles of resection were defined and set in the transverse you. In the settled so will view the Aquablation seem nozzle was identified in his position registered with the software. The length of resection was then set going to the tip of the scope the treatment contours were then set and adjusted in the sagittal view. This was then confirmed. With this confirmed ensuring the patient would not move the Aquablation treatment was started and follow the resection contour and was observed under real-time ultrasound guidance as adjustments were made as an needed. With the 1st pass completed adjustments were again made to the contour and a 2nd pass completed. Total Aquablation resection time was approximately 4 minutes. Total procedure time was right at point hour. With the Aquablation treatment completed the cystoscope was advanced to the tip of the hand piece and it was looked out under direct vision. Resectoscope was then inserted Ellik evacuator used to evacuate the the clot in the bladder. Resecting element was then inserted the position of the ureteral orifices noted in the bladder neck resected from approximately the 2 to 3 o'clock position to the 9 to 10 o'clock position. There was a small amount of tissue at the apex that was redundant and this was resected. Anteriorly there was a flap of tissue that was also resected. With these maneuvers the points of bleeding were controlled in the prostatic fossa was widely patent. Ellik evacuator was then used to evacuate the prostate chips and clear the bladder. The scope was once again inserted with the resecting element was once again inserted points of bleeding were controlled ureteral orifices were consider firm to be in good position with the prostate completely resected the bladder was filled scope was removed and the patient had a vigorous stream. The [address] [place]uria catheter was then placed without difficulty the balloon filled with 45 cc of water and placed to gravity drainage and continuous bladder irrigation. At this point with the patient having tolerated the procedure well he was awakened transferred to the postanesthesia care unit for recovery. The prostate chips were forward to pathology there were no complications Complications: none Post-operative Condition: stable Disposition: PACU Plan for aftercare: Patient will be observed in recovery and if urine remains acceptable he will be discharged to home if need be he will be admitted for continuous bladder irrigation. In any regard he will follow up my office on for likely catheter removal.
[2024-10-10] MEDS: OXYCODONE/ACETAMINOPHEN 5/325 TABLET 1 TAB PO (11:48)
[2024-10-10] MEDS: MEPERIDINE 50 MG/ML INJ 12.5 MG IV (11:57)
[2024-10-10] MEDS: OXYBUTYNIN 5 MG TABLET PO (12:01)
[2024-10-10] MEDS: PHENAZOPYRIDINE 100 MG TABLET 200 MG PO (12:01)
== END 2024-10-10 13:38 | disposition home or self-care (01) ==
PROVIDERS: PCP Family Medicine; Referring Provider Urology; Visit Provider Urology
PROC: 0VT08ZZ Resection of Prostate, Via Natural or Artificial Opening Endoscopic (ICD-10-PCS; CPT 52597; principal; 2024-10-10 09:45)
DX: N40.1 Benign prostatic hyperplasia with lower urinary tract symptoms (principal); N39.43 Post-void dribbling; R39.13 Splitting of urinary stream; Z87.891 Personal history of nicotine dependence; N42.0 Calculus of prostate
CPT/HCPCS: 0421T; C2596; J0330; J0690; J1100; J2175; J2405; J2704; J3010

== ENCOUNTER → 2024-10-12 14:48 | Outpatient (CLI) | payer OTHER, SELFPAY | PROVIDERS: PCP Family Medicine; Visit Provider Urology | DX: R39.9 Unspecified symptoms and signs involving the genitourinary system (principal) | CPT/HCPCS: 87086 ==

== ENCOUNTER → 2024-10-18 15:32 | Outpatient (CLI) | payer OTHER, SELFPAY ==
[2024-10-18 17:08] LABS: Appearance Urine UA CLOUDY; Bilirubin Urine UA 1+ (NEGATIVE); Color Urine UA YELLOW; Glucose Urine UA NEGATIVE (Negative); Ketones Urine UA TRACE (NEGATIVE); Leukocyte Esterase Urine UA TRACE (NEGATIVE); Nitrite Urine UA POSITIVE (Negative); Occult Blood Urine UA 3+ (Negative); Protein Urine UA 2+ (Negative); Specific Gravity Urine UA >=1.030 (1.000-1.035)
[2024-10-18 17:16] LABS: Ictotest Urine Negative (Negative); Urine Volume 10mL (spun)
[2024-10-18 17:17] LABS: Bacteria Urine None Seen; RBC Urine 30-100/HPF (0-5/HPF); Squamous Epithelial Cell Urine None Seen (0-5/HPF); WBC Urine 5-10/HPF (0-5/HPF)
[2024-10-18 17:18] LABS: Calcium Oxalate Crystals Urine Few; Culture Indicated Urine Specimen Cultured; Mucus Urine 1+ (Negative)
== END ==
PROVIDERS: PCP Family Medicine; Visit Provider Urology
DX: R30.9 Painful micturition, unspecified (principal)
CPT/HCPCS: 81001; 87086

== ENCOUNTER → 2024-10-23 13:31 | Outpatient (CLI) | payer OTHER, SELFPAY | PROVIDERS: PCP Family Medicine; Visit Provider Urology | DX: N40.1 Benign prostatic hyperplasia with lower urinary tract symptoms (principal); N13.8 Other obstructive and reflux uropathy; Z68.41 Body mass index [BMI] 40.0-44.9, adult; Z48.89 Encounter for other specified surgical aftercare | CPT/HCPCS: 51798; 81002; 87086 ==

== ENCOUNTER → 2024-10-24 07:05 | Outpatient (CLI) | payer OTHER, SELFPAY ==
--- NOTE | 2024-10-24 07:07 | DI.MRI.S_ITS ---
PROCEDURE: MR ANKLE RT WO CON INDICATIONS: INSTABILITY,RIGHT ANKLE AND LEFT ANKLE TECHNIQUE: Noncontrast sagittal T1 spin echo and T2 fast spin echo with fat saturation, axial proton density fast spin echo and T2 fast spin echo with fat saturation, coronal T1 spin echo and T2 fast spin echo with fat saturation through the ankle/hindfoot. COMPARISON: [facility], CR, XR ANKLE 3 VIEWS WEIGHT BEARING RIGHT, 07/04/2024, 10:25. [facility], CR, XR FOOT RT MIN 3V, 06/26/2024, 13:55. [facility], MR, MR ANKLE RT WO CON, 01/03/2020, 17:47. [facility], MR, MR ANKLE LT WO CON, 10/24/2024, 7:27. FINDINGS: Image quality: Excellent. Bones and joints: No acute trabecular bone injury or fracture. No hindfoot coalitions. No osteochondral injuries of the talar dome. Mild degenerative spurring of the dorsal talonavicular joint. Subchondral cystic changes and edema are seen at the navicular-1st cuneiform articulations in the 2nd and 3rd tarsometatarsal joints. Small nonedematous plantar calcaneal enthesophyte. Small ganglion cyst dorsal to the naviculocuneiform articulations measures up to 6 mm. Medial structures: The deltoid ligament and the spring ligament complex are intact. Mild distal posterior tibialis tenosynovitis. The flexor digitorum longus and flexor hallucis longus tendons are intact. The posterior tibial neurovascular bundle appears normal within the tarsal tunnel, without extrinsic mass effect. Lateral structures: Remote prior low-grade sprains of the anterior talofibular, calcaneofibular, and posterior talofibular ligaments. The anterior and posterior tibiofibular ligaments are intact. The peroneus longus and brevis tendons demonstrate mild tendinosis. Ganglion cyst is seen extending superiorly from the lateral sinus tarsi measuring 14 x 6 x 11 mm. Anterior structures: The tibialis anterior, extensor hallucis longus, and extensor digitorum longus tendons appear intact. Posterior and plantar structures: Achilles tendon is intact. The proximal plantar fascia is mildly thickened without surrounding edema. No abductor digiti minimi muscle atrophy to suggest Sparks neuropathy. IMPRESSION: 1. Remote prior low-grade sprains of the lateral ankle ligaments. 2. Mild peroneus brevis and longus tendinosis. 3. Mild distal posterior tibialis tenosynovitis. 4. [id number] midfoot osteoarthrosis, most notably at the 2nd metatarsophalangeal joint. 5. Small ganglion cyst dorsal to the naviculocuneiform articulations measures up to 6 mm. 14 mm ganglion cyst at the lateral sinus tarsi. 6. Mild chronic proximal plantar fasciitis. Approved by: Yosef Garza M.D. on 10/24/2024 at 14:49
--- NOTE | 2024-10-24 07:07 | DI.MRI.S_ITS ---
PROCEDURE: MR ANKLE LT WO CON INDICATIONS: INSTABILITY,RIGHT ANKLE AND LEFT ANKLE TECHNIQUE: Noncontrast sagittal T1 spin echo and T2 fast spin echo with fat saturation, axial proton density fast spin echo and T2 fast spin echo with fat saturation, coronal T1 spin echo and T2 fast spin echo with fat saturation through the ankle/hindfoot. COMPARISON: [facility], CR, XR FOOT LT MIN 3V, 06/26/2024, 13:55. FINDINGS: Image quality: Excellent. Bones and joints: No acute trabecular bone injury or fracture. No hindfoot coalitions. No osteochondral injuries of the talar dome. [id number] degenerative changes are seen at the navicular-1st cuneiform articulation and the 2nd through 5th tarsometatarsal joints with areas of subchondral cystic changes and marginal osteophytes. Small ganglion cyst dorsal to the second tarsometatarsal joint measures up to 8 mm in maximum dimension. Medial structures: Increased signal within the deep fibers of deltoid ligament is suspicious for a remote prior low-grade sprain. The visualized spring ligament components are intact. The posterior tibialis, flexor digitorum longus, and flexor hallucis longus tendons demonstrate mild tenosynovitis. The posterior tibial neurovascular bundle appears normal within the tarsal tunnel, without extrinsic mass effect. Lateral structures: Remote prior moderate grade sprains of the anterior talofibular ligament and calcaneofibular ligament. Low-grade sprain of the posterior talofibular ligament. Anterior and posterior tibiofibular ligaments are intact. Mild tendinosis of the peroneus brevis and longus tendons. Lobular ganglion cyst extending superiorly from the lateral sinus tarsi measuring approximately the 17 x 11 x 5 mm. Anterior structures: The tibialis anterior, extensor hallucis longus, and extensor digitorum longus tendons appear intact. Posterior and plantar structures: Mild Achilles tendinosis. The proximal plantar fascia is mildly thickened without surrounding edema. No abductor digiti minimi muscle atrophy to suggest Sparks neuropathy. IMPRESSION: 1. Remote prior grade 1-2 sprains of the lateral ankle ligaments. 2. Mild peroneus brevis and longus tendinosis. 3. Remote prior low-grade sprain of the deltoid ligament. 4. Mild tenosynovitis of the medial flexor tendons. 5. Mild Achilles tendinosis. Mild chronic proximal plantar fasciitis. 6. Vkhl-fi-[id number] osteoarthrosis in the midfoot with subchondral cystic changes and small marginal osteophytes. 7. Small ganglion cyst measuring 8 mm dorsal to the 2nd tarsometatarsal joint. Ganglion cyst arising from the lateral sinus tarsi measures up to 17 mm. Approved by: Yosef Garza M.D. on 10/24/2024 at 14:35
== END ==
LOC: MRI 07:06
PROVIDERS: PCP Family Medicine; Referring Provider Podiatrist; Visit Provider Podiatrist
DX: S93.491A Sprain of other ligament of right ankle, initial encounter (principal); S93.492A Sprain of other ligament of left ankle, initial encounter; S93.422A Sprain of deltoid ligament of left ankle, initial encounter; S93.411A Sprain of calcaneofibular ligament of right ankle, initial encounter; S93.412A Sprain of calcaneofibular ligament of left ankle, initial encounter; M65.871 Other synovitis and tenosynovitis, right ankle and foot; M65.872 Other synovitis and tenosynovitis, left ankle and foot; M67.471 Ganglion, right ankle and foot; M67.472 Ganglion, left ankle and foot; M19.071 Primary osteoarthritis, right ankle and foot; M19.072 Primary osteoarthritis, left ankle and foot; M72.2 Plantar fascial fibromatosis; M25.371 Other instability, right ankle; M25.372 Other instability, left ankle; X58.XXXA Exposure to other specified factors, initial encounter
CPT/HCPCS: 73721

== ENCOUNTER → 2024-11-24 14:01 | Outpatient (CLI) | payer OTHER, SELFPAY | PROVIDERS: PCP Family Medicine; Visit Provider Urology | DX: N40.1 Benign prostatic hyperplasia with lower urinary tract symptoms (principal); N13.8 Other obstructive and reflux uropathy; R35.1 Nocturia; R39.9 Unspecified symptoms and signs involving the genitourinary system | CPT/HCPCS: 51798; 81002; 87086; 99213 ==

== ENCOUNTER → 2025-03-27 15:16 | Outpatient (CLI) | payer OTHER, SELFPAY ==
--- NOTE | 2025-03-27 15:17 | DI.RAD.S_ITS ---
PROCEDURE: XR LUMBAR SPINE 2-3V INDICATIONS: chronic lower back pain TECHNIQUE: 3 views of the lumbar spine were acquired. COMPARISON: None. FINDINGS: Lumbar spine curvature and alignment: Normal. Bones: There are no osseous abnormalities. Disc spaces: Mild L4-5 and moderate L5-S1 degenerative disc and facet disease noted. Soft tissues: No soft tissue swelling, calcification or mass. IMPRESSION: Degeneration Dictated by: Domingo Kiser M.D. on 03/28/2025 at 13:33 Approved by: Domingo Kiser M.D. on 03/28/2025 at 13:34
== END ==
PROVIDERS: Family Provider Family Medicine; PCP Family Medicine; Referring Provider Family Medicine; Visit Provider Family Medicine
DX: M51.369 Other intervertebral disc degeneration, lumbar region without mention of lumbar back pain or lower extremity pain (principal); M51.379 Other intervertebral disc degeneration, lumbosacral region without mention of lumbar back pain or lower extremity pain; M47.816 Spondylosis without myelopathy or radiculopathy, lumbar region; M47.817 Spondylosis without myelopathy or radiculopathy, lumbosacral region; M54.50 Low back pain, unspecified; G89.29 Other chronic pain
CPT/HCPCS: 72100

== ENCOUNTER → 2025-04-09 12:37 | Outpatient (CLI) | payer OTHER, SELFPAY ==
--- NOTE | 2025-04-09 12:39 | DI.RAD.S_ITS ---
PROCEDURE: XR CERVICAL SPINE 2V OR 3V INDICATIONS: neck pain TECHNIQUE: 3 view(s) of the cervical spine were acquired. COMPARISON: None. FINDINGS: Bones: Multilevel disc height loss, anterior endplate osteophytes, and facet joint arthropathy. No fractures or dislocations to the T1 level. The lateral masses of C1 appear intact on the odontoid view. No suspicious bony lesions. Soft tissues: No prevertebral soft tissue swelling. IMPRESSION: Mild cervical spondylosis. Dictated by: Shaye KLEIN Interpreted: Ivette Farley MD on 04/09/2025 at 13:53 Transcribed by: KRISHNA on 04/09/2025 at 13:56 Approved by: Ivette Farley M.D. on 04/09/2025 at 17:42
--- NOTE | 2025-04-09 12:39 | DI.RAD.S_ITS ---
PROCEDURE: XR THORACIC SPINE 3V INDICATIONS: upper/mid back pain TECHNIQUE: 3 views of the thoracic spine were acquired. COMPARISON: None. FINDINGS: Bones: Multilevel disc height loss. Vertebral body wedge and superior endplate scalloping deformity of T6. Mild endplate sclerosis and small anterior osteophytes. No suspicious bony lesions. 12 pairs of ribs are noted, and appear intact where visualized. Soft tissues: No paravertebral stripe thickening. IMPRESSION: Fracture deformity of T6, chronicity uncertain. Consider MRI to detect acute osseous edema. Dictated by: Shaye Dominguez [facility] Interpreted: Ivette Farley MD on 04/09/2025 at 13:39 Transcribed by: KRISHNA on 04/09/2025 at 13:53 Approved by: Ivette Farley M.D. on 04/09/2025 at 17:42
== END ==
PROVIDERS: Family Provider Family Medicine; PCP Family Medicine; Referring Provider Family Medicine; Visit Provider Physical Medicine & Rehabilitation
DX: M47.812 Spondylosis without myelopathy or radiculopathy, cervical region (principal); M48.54XA Collapsed vertebra, not elsewhere classified, thoracic region, initial encounter for fracture; M54.2 Cervicalgia; M54.6 Pain in thoracic spine
CPT/HCPCS: 72040; 72072

== ENCOUNTER 2025-04-26 16:15 | Outpatient (RCR) | payer OTHER, SELFPAY ==
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
--- NOTE | 2025-03-12 15:16 | PT.OTN ---
Current Diagnoses Other chronic pain (03/12/25) Low back pain, unspecified (03/12/25) Dorsalgia, unspecified (03/12/25) Physical Therapy Treatment Note PT OP: Cervical/Upper Extremity Start: 03/07/25 16:02 Freq: Status: Active Protocol: Document 03/12/25 14:30 DCW (Rec: 03/12/25 15:16 DCW [id number]) Out-Patient Physical Therapy Visit Information Visit Information Visit Type Treatment Note Visit Start Time 14:30 Visit Stop Time 15:10 Visit Number 2 Number of PROCESSING REP Visits 0 Progress Note Due 04/06/25 Evaluation Information Evaluation Date 03/07/25 Gym Equipment Cable Column (Body Solid) Lat Pull Down Resistance 50# Therapeutic Exercises Standing Exercises Shoulder Abduction Standing Exercise Shoulder Abduction Name Side bilateral Resistance Lv 3 Shoulder Flexion Standing Exercise Shoulder Flexion Name Side bilateral Resistance Lv 3 Pallof Press Standing Exercise Pallof Press Name Side bilateral Resistance Blue Shoulder Extension Standing Exercise Shoulder Extension Name Side bilateral Resistance Blue Rows Standing Exercise Rows Name Side bilateral Resistance Blue Other Exercises Wall Clock Other Exercise Name Wall Clock Side bilateral Resistance Green loop UE side-stepping Other Exercise Name Resisted UE Side-stepping Resistance Green loop Manual Therapy Treatment Consent Patient gave verbal Yes consent for manual treatment Soft Tissue Mobilization Parascapulars Body Location B parascapulars, rhomboids Mobilization Type Strumming,Sustained Pressure,Trigger Point Release Intensity/Depth Moderate Body Position Sidelying Joint Mobilizations Scapula Joint B scapula Direction Lateral mobs Grade III Body Position Supine Physical Therapy Assessment Impairments Impairments Activity Tolerance,Functional Activities,Functional Mobility,Pain,ROM,Soft Tissue Mobility,Strength Goals Three Impairment Pt unable to ambulate >0.5 miles without extreme fatigue Snow Removing Supervisor Goal (LTG) Pt to report ability to go for a 2 mile walk to demonstrate improved activity tolerance LTG Duration 06/05/25 Two Impairment Pt unable to stand longer than 10 minutes without increased pain Senior Living Goal (LTG) Pt to report ability to stand >30 minutes without increased pain to improve ability to perform cooking tasks at home LTG Duration 06/05/25 One Impairment Pt does not have an appropriate home exercise program Senior Living Goal (LTG) Pt to demonstrate ability to correctly perform four home exercises without instruction to display independence with HEP LTG Duration 06/05/25 Assessment Summary Assessment Pt tolerated well, feeling good with home exercises to help improve strength and mobility. Does note continuing soft tissue tightness through mid back. Continue to focus on strength, mobility, activity tolerance, and conditioning. Physical Therapy Plan Frequency and Duration Frequency of 2x/Week Treatment Plan of Care Start 03/07/25 Date Plan of Care End 06/05/25 Date Therapeutic Interventions Therapeutic Balance Training,Coordination Training,Gait Training, Interventions Home Exercise Program,Joint Mobilizations,Manual Therapy,Neuromuscular Re-education,Patient/Caregiver Education,Self-Care/Home Management,Soft Tissue Mobilization,Therapeutic Activities,Therapeutic Exercises Next Visit Focus/Plan Next Note Type Treatment Note Next Visit Plan Improving activity tolerance, STM, core strengthening
--- NOTE | 2025-03-22 15:13 | PT.OTN ---
Current Diagnoses Other chronic pain (03/22/25) Low back pain, unspecified (03/22/25) Dorsalgia, unspecified (03/22/25) Physical Therapy Treatment Note PT OP: Cervical/Upper Extremity Start: 03/07/25 16:02 Freq: Status: Active Protocol: Document 03/22/25 14:30 DCW (Rec: 03/22/25 15:13 DCW [id number]) Out-Patient Physical Therapy Visit Information Visit Information Visit Type Treatment Note Visit Start Time 14:30 Visit Stop Time 15:10 Visit Number 3 Number of SIGNAL CONSTRUCTOR Visits 0 Progress Note Due 04/06/25 Evaluation Information Evaluation Date 03/07/25 OP-PT Subjective Patient Comments Patient Comments Pt admits that the evening after his last session was a little challenging, just due to using muscles that aren't used to working. Gym Equipment Cable Column (Body Solid) Lat Pull Down Resistance 50# Reps/Time 2x12 Therapeutic Exercises Supine Exercises Pec stretch Supine Exercise Name Pec stretch - supine on foam roll Sitting Exercises Piriformis Sitting Exercise Seated Figure-4 Name Side right Other Exercises UE side-stepping Other Exercise Name Resisted UE Side-stepping Resistance Green loop Manual Therapy Treatment Consent Patient gave verbal Yes consent for manual treatment Soft Tissue Mobilization Parascapulars Body Location B parascapulars, rhomboids Mobilization Type Strumming,Sustained Pressure,Trigger Point Release Intensity/Depth Moderate Body Position Sidelying Joint Mobilizations Scapula Joint B scapula Direction Lateral mobs Grade III Body Position Supine Physical Therapy Assessment Impairments Impairments Activity Tolerance,Functional Activities,Functional Mobility,Pain,ROM,Soft Tissue Mobility,Strength Goals Three Impairment Pt unable to ambulate >0.5 miles without extreme fatigue Shelter Goal (LTG) Pt to report ability to go for a 2 mile walk to demonstrate improved activity tolerance LTG Duration 06/05/25 Two Impairment Pt unable to stand longer than 10 minutes without increased pain Shelter Goal (LTG) Pt to report ability to stand >30 minutes without increased pain to improve ability to perform cooking tasks at home LTG Duration 06/05/25 One Impairment Pt does not have an appropriate home exercise program Data Management Consultant Goal (LTG) Pt to demonstrate ability to correctly perform four home exercises without instruction to display independence with HEP LTG Duration 06/05/25 Assessment Summary Assessment Pt not quite compliant with HEP, but requested handouts today after refusing last week. Focus on shoulder, trunk, and core strengthening, thoracic mobility, and STM. Physical Therapy Plan Frequency and Duration Frequency of 2x/Week Treatment Plan of Care Start 03/07/25 Date Plan of Care End 06/05/25 Date Therapeutic Interventions Therapeutic Balance Training,Coordination Training,Gait Training, Interventions Home Exercise Program,Joint Mobilizations,Manual Therapy,Neuromuscular Re-education,Patient/Caregiver Education,Self-Care/Home Management,Soft Tissue Mobilization,Therapeutic Activities,Therapeutic Exercises Next Visit Focus/Plan Next Note Type Treatment Note Next Visit Plan Improving activity tolerance, STM, core strengthening
--- NOTE | 2025-03-28 16:09 | PT.OTN ---
Current Diagnoses Other chronic pain (03/28/25) Low back pain, unspecified (03/28/25) Dorsalgia, unspecified (03/28/25) Physical Therapy Treatment Note PT OP: Cervical/Upper Extremity Start: 03/07/25 16:02 Freq: Status: Active Protocol: Document 03/28/25 15:20 AB (Rec: 03/28/25 16:09 AB [id number]) Out-Patient Physical Therapy Visit Information Visit Information Visit Type Treatment Note Visit Start Time 13:20 Visit Stop Time 14:03 Visit Number 4 Number of DEVOPS DEVELOPER Visits 1 Progress Note Due 04/06/25 OP-PT Subjective Patient Comments Patient Comments Patient reports Wednesday he is to start weaning out of boot, doesn't wear it at home. Orthotic is in the boot. Patient reports he had X rays to back yesterday, and has an MD appointment Dr. German on Wednesday. Back pain continues to be a problem Therapeutic Exercises Supine Exercises Pec stretch Supine Exercise Name Pec stretch - supine on foam roll Reps/Minutes 1. pec stretch 2-3 min 2. alt UE flexion X 10 Comments VC for breathing with pec stretch, verbal cues for alt UE flexion Sidelying Exercises side plank Side bilateral Reps/Minutes X 2 X 15 sec hold Comments verbal cues Open Book Sidelying Exercise Open Book Name Reps/Minutes X 8 Comments Verbal cues for breathing Standing Exercises counter plank bird dog Reps/Minutes X 3 7 sec hold Comments verbal and visual cues Manual Therapy Treatment Consent Patient gave verbal Yes consent for manual treatment Soft Tissue Mobilization thoracic paraspinals Mobilization Type Cross-Friction,Sustained Pressure Intensity/Depth Moderate Body Position Sidelying Parascapulars Body Location B parascapulars, rhomboids Mobilization Type Strumming,Sustained Pressure,Trigger Point Release Intensity/Depth Moderate Body Position Sidelying Comments to deep Joint Mobilizations Scapula Joint B scapula Direction into dep and add Grade III Body Position Supine Physical Therapy Assessment Goals Three Impairment Pt unable to ambulate >0.5 miles without extreme fatigue Boy'S Adviser Goal (LTG) Pt to report ability to go for a 2 mile walk to demonstrate improved activity tolerance LTG Duration 06/05/25 Two Impairment Pt unable to stand longer than 10 minutes without increased pain Boy'S Adviser Goal (LTG) Pt to report ability to stand >30 minutes without increased pain to improve ability to perform cooking tasks at home LTG Duration 06/05/25 One Impairment Pt does not have an appropriate home exercise program Boy'S Adviser Goal (LTG) Pt to demonstrate ability to correctly perform four home exercises without instruction to display independence with HEP LTG Duration 06/05/25 Assessment Summary Assessment AROM seated trunk rotation slightly improved L, but continues to be limited compared to R rotation. Physical Therapy Plan Frequency and Duration Frequency of 2x/Week Treatment Plan of Care Start 03/07/25 Date Plan of Care End 06/05/25 Date Next Visit Focus/Plan Next Note Type Treatment Note Next Visit Plan Improving activity tolerance, STM, core strengthening
--- NOTE | 2025-04-13 15:31 | PT.OTN ---
Current Diagnoses Other chronic pain (04/13/25) Low back pain, unspecified (04/13/25) Dorsalgia, unspecified (04/13/25) Physical Therapy Treatment Note PT OP: Cervical/Upper Extremity Start: 03/07/25 16:02 Freq: Status: Active Protocol: Document 04/13/25 14:34 AB (Rec: 04/13/25 15:31 AB [id number]) Out-Patient Physical Therapy Visit Information Visit Information Visit Type Treatment Note Visit Start Time 14:35 Visit Stop Time 15:20 Visit Number 5 Number of RETAIL PROPERTY MANAGER Visits 2 Progress Note Due 05/13/25 OP-PT Subjective Patient Comments Patient Comments Patient reports the back is sore today. Patient reports he saw his x ray report, but has not spoken to Md. Patient reports he performs HEP 1-2 a week but counter exercises more often. Patient reports he cannot do the exercises with the bands as he doesn't have room. Therapeutic Exercises Sidelying Exercises side plank Side bilateral Reps/Minutes X 15 sec hold Comments no cues required Open Book Sidelying Exercise Open Book Name Reps/Minutes X 10 Comments Verbal cues for LE positioning Sitting Exercises Piriformis Sitting Exercise Seated Figure-4 Name Side bilateral Reps/Minutes X 1 each LE X 40 sec Comments no cues required Standing Exercises counter plank bird dog Reps/Minutes X 3 7 sec hold Comments no cues required Shoulder Abduction Side bilateral Equipment Used 1 lb weight Reps/Minutes X 10 Comments verbal cues Shoulder Flexion Standing Exercise back to wall Name Resistance 1lb Reps/Minutes X 10 Comments verbal cues Shoulder Extension Standing Exercise Shoulder Extension Name Side bilateral Resistance 1lb Reps/Minutes X 10 Comments bent row position HEP Verbal and visual cues Rows Standing Exercise Rows Name Side bilateral Resistance 1 lb Reps/Minutes X 10 bent row position Comments verbal and visual cues Physical Therapy Assessment Goals Three Impairment Pt unable to ambulate >0.5 miles without extreme fatigue Managed Care Specialist Goal (LTG) Pt to report ability to go for a 2 mile walk to demonstrate improved activity tolerance 04/13/2025 Patient reports he has walked 1.5 miles since start of PT, and hand foot pain with this, but the walking didn't bother the back, not really was fatigue and issue, reports since he lost weight it has helped. LTG Duration 06/05/25 Two Impairment Pt unable to stand longer than 10 minutes without increased pain Penitentiary Goal (LTG) Pt to report ability to stand >30 minutes without increased pain to improve ability to perform cooking tasks at home 04/13/2025 Patient reports he can stand 5 min prior to increase in pain. LTG Duration 06/05/25 One Impairment Pt does not have an appropriate home exercise program Managed Care Specialist Goal (LTG) Pt to demonstrate ability to correctly perform four home exercises without instruction to display independence with HEP 04/13/2025 Patient able to perform 5/6 HEP exercises without any instruction. LTG Duration 06/05/25 MET Assessment Summary Assessment Patient met goal for HEP, and is progression with goal for ambulation. Narendra has not made any progress with standing tolerance. Possibly being unable to use the exercise bands in his home is contributing. HEP modified to 1 lb weight for scapular and UE exercises. Physical Therapy Plan Frequency and Duration Frequency of 2x/Week Treatment Plan of Care Start 03/07/25 Date Plan of Care End 06/05/25 Date Next Visit Focus/Plan Next Note Type Treatment Note Next Visit Plan Improving activity tolerance, STM, core strengthening
--- NOTE | 2025-04-13 16:03 | PT.OPPN ---
Current Diagnoses Other chronic pain (04/13/25) Low back pain, unspecified (04/13/25) Dorsalgia, unspecified (04/13/25) Physical Therapy Progress Note PT OP: Cervical/Upper Extremity Start: 03/07/25 16:02 Freq: Status: Active Protocol: Document 04/13/25 15:53 JZ (Rec: 04/13/25 16:03 ANA LAURA [id number]) Out-Patient Physical Therapy Visit Information Visit Information Visit Type Treatment Note Visit Start Time 14:35 Visit Stop Time 15:20 Visit Number 5 Progress Note Due 05/13/25 OP-PT Subjective Patient Comments Patient Comments Patient reports no large changes in presentation since starting PT. He reports he still feels limited mostly with standing activities but he is able to walk extended distances fairly well without his back giving him much pain. Physical Therapy Assessment Goals Three Impairment Pt unable to ambulate >0.5 miles without extreme fatigue Prison Goal (LTG) Pt to report ability to go for a 2 mile walk to demonstrate improved activity tolerance 04/13/2025 Patient reports he has walked 1.5 miles since start of PT, and hand foot pain with this, but the walking didn't bother the back, not really was fatigue and issue, reports since he lost weight it has helped. LTG Duration 06/05/25 Two Impairment Pt unable to stand longer than 10 minutes without increased pain Sanitation Associate Goal (LTG) Pt to report ability to stand >30 minutes without increased pain to improve ability to perform cooking tasks at home 04/13/2025 Patient reports he can stand 5 min prior to increase in pain. LTG Duration 06/05/25 One Impairment Pt does not have an appropriate home exercise program Sanitation Associate Goal (LTG) Pt to demonstrate ability to correctly perform four home exercises without instruction to display independence with HEP 04/13/2025 Patient able to perform 5/6 HEP exercises without any instruction. LTG Duration 06/05/25 MET Assessment Summary Assessment Patient presenting to PT after 4 visits for chronic mid back pain. Patient has reported no significant improvement in presentation thus far. Further questioning revealed apparent improvement in walking tolerance (see goal section). Patient still has deficits and pain that limits his ability to stand for extended periods and he will continue to benefit from PT to address deficits and improve standing tolerance. Physical Therapy Plan Frequency and Duration Frequency of 2x/Week Treatment Plan of Care Start 03/07/25 Date Plan of Care End 06/05/25 Date Next Visit Focus/Plan Next Note Type Treatment Note Next Visit Plan Improving activity tolerance, STM, core strengthening
--- NOTE | 2025-04-19 17:02 | PT.OTN ---
Current Diagnoses Other chronic pain (04/19/25) Low back pain, unspecified (04/19/25) Dorsalgia, unspecified (04/19/25) Physical Therapy Treatment Note PT OP: Cervical/Upper Extremity Start: 03/07/25 16:02 Freq: Status: Active Protocol: Document 04/19/25 16:15 DCW (Rec: 04/19/25 17:02 DCW [id number]) Out-Patient Physical Therapy Visit Information Visit Information Visit Type Treatment Note Visit Start Time 16:15 Visit Stop Time 17:00 Visit Number 6 Number of AGENT BASED MODELER Visits 0 Progress Note Due 05/13/25 Evaluation Information Evaluation Date 03/07/25 Current Condition History of Current Condition Prior Treatments and Thoracic x-ray: IMPRESSION: Fracture deformity of T6, Tests chronicity uncertain. Consider MRI to detect acute osseous edema. Dictated by: Shaye KLEIN Interpreted: Ivette Farley MD on 04/09/2025 OP-PT Subjective Patient Comments Patient Comments Denies any real changes since starting PT, Not worse, not better, I'm actually paying more attention to it than I used to. Gym Equipment Cable Column (Body Solid) Lat Pull Down Resistance 50# Reps/Time 2x12 Therapeutic Exercises Sidelying Exercises Reverse Clamshell Sidelying Exercise Reverse Clamshell Name Side bilateral Clamshell Sidelying Exercise Clamshell Name Side bilateral Other Exercises BOSU Lunge Other Exercise Name BOSU Lunge Side bilateral Equipment Used Blue BOSU UE side-stepping Other Exercise Name Resisted UE Side-stepping Resistance Green loop Manual Therapy Treatment Consent Patient gave verbal Yes consent for manual treatment Soft Tissue Mobilization thoracic paraspinals Mobilization Type Cross-Friction,Sustained Pressure Intensity/Depth Moderate Body Position Sidelying Parascapulars Body Location B parascapulars, rhomboids Mobilization Type Strumming,Sustained Pressure,Trigger Point Release Intensity/Depth Moderate Body Position Sidelying Comments to deep Joint Mobilizations Scapula Joint B scapula Direction into dep and add Grade III Body Position Supine Physical Therapy Assessment Impairments Impairments Activity Tolerance,Functional Activities,Functional Mobility,Pain,ROM,Soft Tissue Mobility,Strength Goals Three Impairment Pt unable to ambulate >0.5 miles without extreme fatigue Claims Clerk Goal (LTG) Pt to report ability to go for a 2 mile walk to demonstrate improved activity tolerance 04/13/2025 Patient reports he has walked 1.5 miles since start of PT, and hand foot pain with this, but the walking didn't bother the back, not really was fatigue and issue, reports since he lost weight it has helped. LTG Duration 06/05/25 Two Impairment Pt unable to stand longer than 10 minutes without increased pain Halfway Goal (LTG) Pt to report ability to stand >30 minutes without increased pain to improve ability to perform cooking tasks at home 04/13/2025 Patient reports he can stand 5 min prior to increase in pain. LTG Duration 06/05/25 One Impairment Pt does not have an appropriate home exercise program Claims Clerk Goal (LTG) Pt to demonstrate ability to correctly perform four home exercises without instruction to display independence with HEP 04/13/2025 Patient able to perform 5/6 HEP exercises without any instruction. LTG Duration 06/05/25 MET Assessment Summary Assessment Pt feels as though he has mot made much progress with PT so far. New radiograph shows fracture deformity of T6, although chronicity is uncertain. Pt may benefit from continued focus on core, hip, and shoulder stability, increased activity tolerance, and general tone management. Physical Therapy Plan Frequency and Duration Frequency of 2x/Week Treatment Plan of Care Start 03/07/25 Date Plan of Care End 06/05/25 Date Therapeutic Interventions Therapeutic Balance Training,Coordination Training,Gait Training, Interventions Home Exercise Program,Joint Mobilizations,Manual Therapy,Neuromuscular Re-education,Patient/Caregiver Education,Self-Care/Home Management,Soft Tissue Mobilization,Therapeutic Activities,Therapeutic Exercises Next Visit Focus/Plan Next Note Type Treatment Note Next Visit Plan Improving activity tolerance, STM, core strengthening
--- NOTE | 2025-04-23 17:00 | PT.OTN ---
Current Diagnoses Other chronic pain (04/23/25) Low back pain, unspecified (04/23/25) Dorsalgia, unspecified (04/23/25) Physical Therapy Treatment Note PT OP: Cervical/Upper Extremity Start: 03/07/25 16:02 Freq: Status: Active Protocol: Document 04/23/25 16:20 DCW (Rec: 04/23/25 16:59 DCW [id number]) Out-Patient Physical Therapy Visit Information Visit Information Visit Type Treatment Note Visit Start Time 16:20 Visit Stop Time 17:00 Visit Number 7 Number of MECHANICAL ESTIMATOR Visits 0 Progress Note Due 05/13/25 Evaluation Information Evaluation Date 03/07/25 OP-PT Subjective Patient Comments Patient Comments Pt hoping to transition from his back to his foot soon, waiting for his referral to get sent over. Gym Equipment Cable Column (Body Solid) Lat Pull Down Resistance 50# Reps/Time 2x12 Shuttle Balance Red Details NBOS, Staggered Therapeutic Exercises Other Exercises BOSU Lunge Other Exercise Name BOSU Lunge Side bilateral Equipment Used Blue BOSU Manual Therapy Treatment Consent Patient gave verbal Yes consent for manual treatment Soft Tissue Mobilization thoracic paraspinals Body Location T/L spine Mobilization Type Cross-Friction,Sustained Pressure Intensity/Depth Moderate Body Position Sidelying Parascapulars Body Location B parascapulars, rhomboids Mobilization Type Strumming,Sustained Pressure,Trigger Point Release Intensity/Depth Moderate Body Position Sidelying Comments to deep Joint Mobilizations Scapula Joint B scapula Direction into dep and add Grade III Body Position Supine Physical Therapy Assessment Impairments Impairments Activity Tolerance,Functional Activities,Functional Mobility,Pain,ROM,Soft Tissue Mobility,Strength Goals Three Impairment Pt unable to ambulate >0.5 miles without extreme fatigue [facility] Goal (LTG) Pt to report ability to go for a 2 mile walk to demonstrate improved activity tolerance 04/13/2025 Patient reports he has walked 1.5 miles since start of PT, and hand foot pain with this, but the walking didn't bother the back, not really was fatigue and issue, reports since he lost weight it has helped. LTG Duration 06/05/25 Two Impairment Pt unable to stand longer than 10 minutes without increased pain Video Game Engineer Goal (LTG) Pt to report ability to stand >30 minutes without increased pain to improve ability to perform cooking tasks at home 04/13/2025 Patient reports he can stand 5 min prior to increase in pain. LTG Duration 06/05/25 One Impairment Pt does not have an appropriate home exercise program [facility] Goal (LTG) Pt to demonstrate ability to correctly perform four home exercises without instruction to display independence with HEP 04/13/2025 Patient able to perform 5/6 HEP exercises without any instruction. LTG Duration 06/05/25 MET Assessment Summary Assessment Good response to new exercise today, will likely discharge following next visit to switch focus to post- surgical foot with new referral. Plan to review HEP and discuss exercises to do at the gym. Physical Therapy Plan Frequency and Duration Frequency of 2x/Week Treatment Plan of Care Start 03/07/25 Date Plan of Care End 06/05/25 Date Therapeutic Interventions Therapeutic Balance Training,Coordination Training,Gait Training, Interventions Home Exercise Program,Joint Mobilizations,Manual Therapy,Neuromuscular Re-education,Patient/Caregiver Education,Self-Care/Home Management,Soft Tissue Mobilization,Therapeutic Activities,Therapeutic Exercises Next Visit Focus/Plan Next Note Type Treatment Note Next Visit Plan Improving activity tolerance, STM, core strengthening
--- NOTE | 2025-04-26 16:48 | PT.OPDS ---
Current Diagnoses Other chronic pain (04/26/25) Low back pain, unspecified (04/26/25) Dorsalgia, unspecified (04/26/25) Visit Care Team Role Provider Type Devyn Beverly DO Attending Provider Physician Family Provider Primary Care Provider Referring Provider Specialty: Family Practice Address: [address] [place] [address], [facility] Email: [email or web address] Visit Number Visit Number 8 Discharge Summary PT OP: Cervical/Upper Extremity Start: 03/07/25 16:02 Freq: Status: Active Protocol: Document 04/26/25 16:15 DCW (Rec: 04/26/25 16:48 DCW [id number]) Out-Patient Physical Therapy Visit Information Visit Information Visit Type Discharge Summary Visit Start Time 16:15 Visit Stop Time 16:45 Visit Number 8 Number of MARK[employer] 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 Hoping to get to [facility] 2-3x/week. Manual Therapy Treatment Consent Patient gave verbal Yes consent for manual treatment Soft Tissue Mobilization thoracic paraspinals Body Location T/L spine Mobilization Type Cross-Friction,Sustained Pressure Intensity/Depth Moderate Body Position Sidelying Parascapulars Body Location B parascapulars, rhomboids Mobilization Type Strumming,Sustained Pressure,Trigger Point Release Intensity/Depth Moderate Body Position Sidelying Comments to deep Joint Mobilizations Scapula Joint B scapula Direction into dep and add Grade III Body Position Supine Physical Therapy Assessment Impairments Impairments Activity Tolerance,Functional Activities,Functional Mobility,Pain,ROM,Soft Tissue Mobility,Strength Goals Three Impairment Pt unable to ambulate >0.5 miles without extreme fatigue [employer] Goal (LTG) Pt to report ability to go for a 2 mile walk to demonstrate improved activity tolerance 04/26/25: Past week, pt walked 1 mile, slight increased pain in back. LTG Duration 06/05/25 Two Impairment Pt unable to stand longer than 10 minutes without increased pain [employer]cycle [employer]ator Goal (LTG) Pt to report ability to stand >30 minutes without increased pain to improve ability to perform cooking tasks at home 04/26/25: Patient reports he can stand 3-10 min prior to increase in pain. LTG Duration 06/05/25 One Impairment Pt does not have an appropriate home exercise program [employer]cycle [employer] Goal (LTG) Pt to demonstrate ability to correctly perform four home exercises without instruction to display independence with HEP 04/13/2025 Patient able to perform 5/6 HEP exercises without any instruction. LTG Duration Met Assessment Summary Assessment Discussed possible exercises he is safely perform at gym following discharge. Leg press, hip abd/adduction and core strengthening. Discharge to transition to skilled therapy for foot instead of back. Physical Therapy Plan Frequency and Duration Frequency of 2x/Week Treatment Plan of Care Start 03/07/25 Date Plan of Care End 06/05/25 Date Therapeutic Interventions Therapeutic Balance Training,Coordination Training,Gait Training, Interventions Home Exercise Program,Joint Mobilizations,Manual Therapy,Neuromuscular Re-education,Patient/Caregiver Education,Self-Care/Home Management,Soft Tissue Mobilization,Therapeutic Activities,Therapeutic Exercises Discharge Physical Therapy Discharge Reasons Patient Request Next Visit Focus/Plan Next Note Type Discharge Summary
== END 2025-04-30 10:45 | disposition home or self-care (01) ==
LOC: PHYS 16:15
PROVIDERS: Family Provider Family Medicine; PCP Family Medicine; Referring Provider Family Medicine; Visit Provider Family Medicine
DX: M54.9 Dorsalgia, unspecified (principal); M54.50 Low back pain, unspecified; G89.29 Other chronic pain
CPT/HCPCS: 97110; 97140; 97162; 97535

== ENCOUNTER → 2025-04-27 14:57 | Outpatient (CLI) | payer OTHER, SELFPAY ==
--- NOTE | 2025-04-27 15:00 | DI.MRI.S_ITS ---
PROCEDURE: MR THORACIC SPINE WO CON INDICATIONS: T6 compression frx noted on XR TECHNIQUE: Noncontrast sagittal T1 spine echo and T2 fast spin echo through the thoracic spine. Patient aborted examination prior to additional sequences being completed. COMPARISON: None. FINDINGS: Image quality: Excellent. Alignment and Curvature: There is normal bony alignment. Bone Marrow: Marrow is of normal overall signal. No acute vertebral body compression fractures. Mild chronic compression deformity of the T6 vertebral body. Spinal Cord: Visualized spinal cord is normal in size and signal. Paraspinous Soft Tissues: No paravertebral masses. Miscellaneous: On sagittal images, central canal and foramina appear widely patent at all scanned levels. Axial images were not obtained due to patient terminating examination early. IMPRESSION: Chronic mild compression deformity of the T6 vertebral body. Limited sequences acquired; patient terminated examination early. Dictated by: Heidy Levy M.D. on 04/29/2025 at 15:21 Approved by: Heidy Levy M.D. on 04/29/2025 at 15:27
== END ==
PROVIDERS: Family Provider Family Medicine; PCP Family Medicine; Referring Provider Physical Medicine & Rehabilitation; Visit Provider Physical Medicine & Rehabilitation
DX: S22.050A Wedge compression fracture of T5-T6 vertebra, initial encounter for closed fracture (principal)
CPT/HCPCS: 72146

== ENCOUNTER → 2025-05-22 11:05 | Outpatient (CLI) | payer OTHER, SELFPAY ==
[2025-05-22 11:53] LABS: Add Manual Diff / Slide Review NO; Hematocrit 46.0 % (41-53); Hemoglobin 16.1 g/dL (13.5-17.5); Lymphocytes Absolute Auto 1900 /uL (1100-4500); Mean Corpuscular HGB Conc 34.9 % (30-36); Mean Corpuscular Hemoglobin 28.9 PG (26-34); Mean Corpuscular Volume 82.7 fL (80-100); Platelet Count 334 X10^3/uL (150-400)
[2025-05-22 12:11] LABS: Alanine Aminotransferase 20 IU/L (<50); Albumin 4.6 g/dL (3.5-5.0); Albumin Globulin Ratio 1.8 (1.0-2.8); Alkaline Phosphatase 79 U/L (38-126); Blood Urea Nitrogen 6 mg/dL (9-20); Calcium 9.8 mg/dL (8.4-10.2); Carbon Dioxide 25 mmol/L (22-32); Chloride 104 mmol/L (98-107); Cholesterol 132 mg/dL (140-199); Estimated Glomerular Filt Rate > 60 mL/min (>60); Globulin 2.5 g/dL (1.7-4.1); Glucose 103 mg/dL (70-99); HDL Cholesterol 49 mg/dL (40-60); HEMOLYSIS < 15 (0-50); Potassium 4.3 mmol/L (3.4-5.1); Sodium 139 mmol/L (137-145); Total Protein 7.1 g/dL (6.3-8.2); Triglycerides 106 mg/dL (35-150)
[2025-05-22 12:13] LABS: Hemoglobin A1C% w Est Avg Glu 5.4 % (4.0-6.0)
[2025-05-22 12:36] LABS: Appearance Urine UA CLEAR; Bilirubin Urine UA NEGATIVE (NEGATIVE); Color Urine UA YELLOW; Glucose Urine UA NEGATIVE (Negative); Ketones Urine UA NEGATIVE (NEGATIVE); Leukocyte Esterase Urine UA NEGATIVE (NEGATIVE); Nitrite Urine UA NEGATIVE (Negative); Occult Blood Urine UA NEGATIVE (Negative); Protein Urine UA NEGATIVE (Negative); Specific Gravity Urine UA <=1.005 (1.000-1.035); Urobilinogen Urine UA 0.2 E.U./dL (0.2); pH Urine UA 5.5 (4.5-8.0)
[2025-05-22 12:40] LABS: Prostate Specific Antigen 1.54 ng/mL (0.10-4.00)
[2025-05-22 12:41] LABS: TSH w/ Reflex to FT4 1.05 uIU/mL (0.47-4.68)
[2025-05-22 14:11] LABS: Urine Chlamydia NOT DETECTED; Urine N gonorrhoeae NOT DETECTED
[2025-05-22 15:48] LABS: HIV 1 & 2 Ab/Ag 4th Gen Combo NEGATIVE (NEGATIVE)
== END ==
PROVIDERS: Family Provider Family Medicine; PCP Family Medicine; Referring Provider Family Medicine; Visit Provider Family Medicine
DX: I10 Essential (primary) hypertension (principal); M54.50 Low back pain, unspecified; G89.29 Other chronic pain
CPT/HCPCS: 36415; 80053; 80061; 81003; 83036; 84153; 84443; 85025; 87389; 87491; 87591